=== PATIENT | female | born 1950 | race Caucasian/White ===

== ENCOUNTER → 2017-10-24 14:57 | Outpatient (REF) | payer MEDICARE, SELFPAY ==
[2017-10-24 19:38] LABS: HCT 37.3 % (36.0-46.0); HGB 12.5 g/dL (12.0-15.5); Mean Corp. HGB Concentration 33.5 g/dL (32.0-36.0); Mean Corpuscular Hemoglobin 30.3 pg (27.0-33.0); Mean Corpuscular Volume 90.5 fL (80-95); Mean Platelet Volume 8.7 fL (8.0-11.0); Platelet Count 377 x1000/uL (130-400); RBC 4.12 m/cumm (4.00-5.20); RBC Distribution Width 13.2 % (11.7-14.6); White Blood Cell Count 7.91 k/cumm (4.4-10.8)
[2017-10-24 19:56] LABS: Anion Gap 7.2 mmol/L (3-11); BUN 11 mg/dL (7-18); CO2 29.8 mmol/L (21.0-32.0); CREATININE 1.39 mg/dL (0.55-1.02); Calcium 8.3 mg/dL (8.5-10.1); Chloride 103 mmol/L (98-107); Estimated GFR 37.71 (mL/min/1.73m2); Glucose 75 mg/dL (70-100); Potassium 4.2 mmol/L (3.5-5.1); Sodium 140 mmol/L (136-145); TSH (W/Ref FT4) 2.24 uIU/mL (0.358-3.74)
== END ==
LOC: NCHCN 14:57
PROVIDERS: PCP Family Medicine; Visit Provider Family Medicine
DX: R53.83 Other fatigue (principal)
CPT/HCPCS: 80048; 85027; 84443

== ENCOUNTER 2017-11-29 09:09 | Outpatient (CLI) | payer MEDICARE, SELFPAY ==
[2017-11-29 10:37] LABS: Anion Gap 9.3 mmol/L (3-11); BUN 10 mg/dL (7-18); CO2 29.7 mmol/L (21.0-32.0); CREATININE 0.76 mg/dL (0.55-1.02); Chloride 103 mmol/L (98-107); Glucose 83 mg/dL (70-100); Potassium 4.5 mmol/L (3.5-5.1); Sodium 142 mmol/L (136-145)
[2017-11-30 10:34] LABS: Parathyroid Hormone,Intact 49 pg/ml (19-88)
== END 2017-11-29 09:29 ==
PROVIDERS: PCP Family Medicine; Visit Provider Family Medicine
DX: R53.83 Other fatigue (principal); E83.51 Hypocalcemia
CPT/HCPCS: 36415; 80048; 83970

== ENCOUNTER → 2018-08-01 09:52 | Outpatient (BNVA) | payer MEDICARE, SELFPAY | PROVIDERS: PCP Family Medicine; Referring Provider Family Medicine; Visit Provider Physical Therapy Assistant | DX: Z12.11 Encounter for screening for malignant neoplasm of colon (principal); J44.9 Chronic obstructive pulmonary disease, unspecified; Z99.81 Dependence on supplemental oxygen ==

== ENCOUNTER 2018-08-16 02:46 | Outpatient (CLI) | payer MEDICARE, SELFPAY | END 2018-08-16 03:06 | PROVIDERS: PCP Family Medicine; Visit Provider Surgery | DX: I20.9 Angina pectoris, unspecified (principal); Z01.810 Encounter for preprocedural cardiovascular examination | CPT/HCPCS: 93005; 93010 ==

== ENCOUNTER 2018-08-16 13:03 | Outpatient (CLI) | payer MEDICARE, SELFPAY | END 2018-08-16 13:23 | PROVIDERS: PCP Family Medicine; Visit Provider Surgery | DX: Z01.818 Encounter for other preprocedural examination (principal) ==

== ENCOUNTER 2018-08-23 08:00 | Day surgery (SDC) | payer MEDICARE, SELFPAY ==
[2018-08-23 08:44] VITALS: BP 106/63; PULSE 68; RESP 16; TEMP 36.5; O2SAT 94
[2018-08-23] MEDS: Lactated Ringers 1,000 ML 80 ML IV (09:00)
--- NOTE | 2018-08-23 11:33 | BOWEL_PTH ---
PATIENT: Tram Harris LOC: [facility] U#:[id number] AGE/SX: 68/F ROOM: RE08/23/[address]: Comfort Abad : 1950 BED: DIS: 08/23/2018 SPEC #: [id number] RECD: 08/23/18 13:12 STATUS: RACHEL RE #: [id number] JANETTE: 08/23/18 11:[address]: Comfort Abad DEPT: Surgical Specimen RECD BY: Mesha Carbajal ENTERED: 08/23/18 13:15 SP TYPE: Bowel OTHR DR: Sanjuana Haines Tissues: 1 - BIOPSY BOWEL 2 - BIOPSY BOWEL 3 - BIOPSY BOWEL 4 - BIOPSY BOWEL Procedures: GROSS AND MICRO LEVEL 4 Comments: [id number]
--- NOTE | 2018-08-23 12:05 | W.PM.DSUDISC ---
Discharge Plan Disposition Patient Disposition: HOME Condition: Good Discharge Details Reason For Visit: colonscopy w/ mult polyps removed Attending Provider: Comfort Abad Primary Care Provider: Sanjuana Haines Home Meds and New Rx's Prescriptions: Continued clonazepam 1 MG tablet 1 mg PO BID RF: 0 nitroglycerin [Nitrostat] 0.4 MG tablet, sublingual 0.4 mg Sublingual PRN PRNRF: 0 omeprazole 20 MG capsule,delayed release(DR/EC) 20 mg PO DAILY@0730 RF: 0 atorvastatin [Lipitor] 20 MG tablet 20 mg PO QPM RF: 0 escitalopram oxalate [Lexapro] 20 MG tablet 40 mg PO DAILY RF: 0 albuterol sulfate [ProAir HFA] 200 PUFF HFA aerosol inhaler 2 puff Inhalation QID PRN PRNRF: 0 metoprolol tartrate 25 MG tablet 0.5 mg PO BID RF: 0 Tudorza Pressair 400 MCG aerosol powdr breath activated 1 puff Inhalation DAILY RF: 0 oxybutynin chloride 5 MG tablet 1 tab PO BID RF: 0 isosorbide mononitrate 30 MG tablet extended release 24 hr 30 mg PO DAILY Qty: 30 RF: 0 Discontinued polyethylene glycol 3350 17 gram/dose powder 238 g PO ONCE Qty: 238 RF: 0 bisacodyl [Dulcolax (bisacodyl)] 5 mg tablet,delayed release (DR/EC) 5 mg PO ONCE Qty: 4 RF: 0 Discharge Instructions Instructions: High Fiber Diet (GEN) Additional Instructions: Findings:mult polyps Follow up: repeat scope in 1-3 yrs time will send a letter w/ reults in 2-3 wks and when to repeat scope NO asa/nsaids for x2 wks Please call if you develop: fevers >101.5 Nausea or Vomiting Abdominal pain that is not transient DAY SURGERY UNIT POST COLONOSCOPY INSTRUCTIONS 1. Because there will be medication in your system for the next 24 hours, you may feel a little sleepy. Your coordination will be affected. Therefore: a. Do not drive or operate dangerous equipment for 24 hours. b. Do not drink alcohol beverages for 24 hours (not even beer). c. Plan to go home and rest for the day. 2. Generally there are no restrictions on your activity after a day or so has gone by, but you may feel a bit fatigued for a few days. 3 After you arrive home you may have a light meal and return to a normal diet as you can tolerate it without feeling sick to your stomach. 4. After surgery, you may feel pain or discomfort. This should be only transient, but if it persists please contact your doctor. 5. If there are any questions regarding the findings of your procedure, please feel free to contact your doctor. 6. If you are unable to contact your doctor with a problem, contact the hospital at [phone]. 7. Continue all your regular medications unless directed otherwise. I understand the above instructions and have no questions. Signature of Patient or Responsible Adult Escort Date/Time Name of Responsible Adult Escort Signature of Nurse Date/Time Activity:: no heavy lifting or strenuous acitvity x 24 hrs Diet:: small lt meals today Discharge Orders Discharge Orders: Discharge Order (Routine); Ordered 08/23/18 Ordered By: Comfort Abad DS: Diagnosis Discharge Diagnosis (1) Adenomatous polyps: Status: Acute
--- NOTE | 2018-08-23 12:08 | W.COLOREPORT ---
Date of service: 08/23/18 Time of Service: 12:09 Colonoscopy Report Date of procedure: 08/23/18 Pre-op diagnosis general: FIT + Post-op diagnosis procedure note: other (polyps x 7) Procedure: 2 were removed by hot snare 5 by cold biter Surgeon: Comfort Abad Anesthesia proc note operative: GETA Estimated blood loss (mL): 5 Pathology: other Complications: None Disposition: same day Prep: Miralax Procedure Start Time: 11:10 Procedure End Time: 11:58 Procedure Description: After informed consent was obtained the patient was taken to the procedure room and placed in a left decubitous position. Monitors were applied and a time out was done. The patients name, date of , procedure, allergies to medications and metal in their body was reviewed. The patient was then sedated. Once sedated and comfortable a rectal exam was done. External exam: Hemorrhoids Internal exam revealed a normal sphincter tone and no palpable masses. The scope was then introduced and retrofelexed. no internal hemorrhoids were identified. The scope was then advanced to the cecum without difficulty. The TI and appendiceal orifice were identified. The prep was poor-lesions <5mm may have been missed. Melanosis cololi noted. The scope was then slowly retracted over 40 minutes back into the rectum. Polyps were removed at: 80cm/ascending colonx1 w/ cold biter. 60cm/transverse colon x1 w/ cold biter. 50cm/transverse colon x1 hot snare. 30cm/descending x3- cold biter. adn X1 w/ hot snare. All specimens were retreived and no bleeding was noted. The scope was removed and the patient was woken up and taken back to Same day surgery in stable condition. The patient tolerated the procedure well and there were no immediate complications. Follow up: The patient should follow up in 1-3 years unless they develop changes in bowel habits or other new gastrointestinal complaints, and provided she is healthy enough for anesthesia.
[2018-08-23 12:52] VITALS: BP 124/78; PULSE 56; RESP 16; TEMP 35.2; O2SAT 96
== END 2018-08-23 13:32 | disposition home or self-care (01) ==
PROVIDERS: PCP Family Medicine; Visit Provider Surgery
PROC: 0DJD8ZZ Inspection of Lower Intestinal Tract, Via Natural or Artificial Opening Endoscopic (ICD-10-PCS; CPT 45378; principal; 2018-08-23 09:30)
DX: Z12.11 Encounter for screening for malignant neoplasm of colon (principal); D12.2 Benign neoplasm of ascending colon; D12.3 Benign neoplasm of transverse colon; D12.4 Benign neoplasm of descending colon; K63.5 Polyp of colon; K63.89 Other specified diseases of intestine; J44.9 Chronic obstructive pulmonary disease, unspecified; K21.9 Gastro-esophageal reflux disease without esophagitis
CPT/HCPCS: 45385; 45380; 88305; 99211

== ENCOUNTER 2018-10-03 12:53 | Outpatient (CLI) | payer MEDICARE, SELFPAY ==
--- NOTE | 2018-10-03 13:16 | DI.MAMMO_ITS ---
SYMPTOM/DIAGNOSIS: SCREENING, Z12.39, PREVENTIVE HEALTH CARE, Z00.00 MAMMOGRAMS: Mammograms were interpreted according to the usual protocol including computer analysis with CAD system, tomosynthesis and C view imaging. The breast tissue is of moderate radiodensity. When compared with prior images, again noted is the asymmetric density in the upper outer quadrant of the left breast. There are no suspicious calcifications. SUMMARY: No evidence of malignancy. Category 1. Yearly screening mammography is recommended. Breast density, Category B. MQSA ASSESSMENT OF FINDINGS: Negative. Category 1. Patient will receive a letter notifying them of these results. BI-RADS category B. There are scattered areas of fibroglandular density.
== END 2018-10-03 13:13 ==
PROVIDERS: PCP Family Medicine; Visit Provider Family Medicine
DX: Z12.31 Encounter for screening mammogram for malignant neoplasm of breast (principal)
CPT/HCPCS: 77063; 77067

== ENCOUNTER 2019-04-05 16:45 | Emergency (ER) | payer MEDICARE, SELFPAY ==
[2019-04-05] VITALS (22 sets, daily range): BP systolic 104–131; BP diastolic 71–97; PULSE 0–104; RESP 11–24; TEMP 36.4–36.5; O2SAT 90–97
--- NOTE | 2019-04-05 17:05 | ED.GENADUL_ITS ---
Discharge Plan Disposition Patient Disposition: HOME Condition: Improving Discharge Details Chief Complaint: Chest Pain Clinical Impression: Atypical chest pain Primary Care Provider: Meme Rosa V ED Provider: Pk Balderas Home Meds and New Rx's Prescriptions: Continued clonazepam 1 MG tablet 1 mg PO BID RF: 0 nitroglycerin [Nitrostat] 0.4 MG tablet, sublingual 0.4 mg Sublingual PRN PRNRF: 0 omeprazole 20 MG capsule,delayed release(DR/EC) 20 mg PO DAILY@0730 RF: 0 atorvastatin [Lipitor] 20 MG tablet 20 mg PO QPM RF: 0 escitalopram oxalate [Lexapro] 20 MG tablet 40 mg PO DAILY RF: 0 albuterol sulfate [ProAir HFA] 200 PUFF HFA aerosol inhaler 2 puff Inhalation QID PRN PRNRF: 0 metoprolol tartrate 25 MG tablet 0.5 mg PO BID RF: 0 oxybutynin chloride 5 MG tablet 1 tab PO BID RF: 0 isosorbide mononitrate 30 MG tablet extended release 24 hr 30 mg PO DAILY Qty: 30 RF: 0 No Action calcium citrate [Calcitrate] 200 mg (950 mg) Tablet 200 mg PO BID RF: 0 cholecalciferol (vitamin D3) [Vitamin D3] 2,000 unit Tablet 2,000 unit PO DAILY RF: 0 Incruse Ellipta 62.5 mcg/actuation Blister With Device 1 inh INHALATION DAILY RF: 0 Medical Decision Making 69-year-old female presents from home stating that this morning she developed dull left-sided chest pain at rest that lasted minutes at a time dissipated on its own. It came on and off throughout the day. This afternoon she felt should be evaluated and she and her got in the car to come to the hospital and the chest pain dissipated. It was not associated with shortness of breath and she has not been ill in any way. 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 Patient arrives in no distress with normal vital signs. She states she is oxygen dependent at home but her room air oxygenation is 94 to 95%. Chest x-ray reveals linear atelectasis versus mild infiltrate at the left base. Labs: White blood cell count 7, hematocrit 38, platelets 434. Chemistries notable for magnesium of 1.6 which was supplemented in the emergency department. Troponin was negative. Patient remained asymptomatic throughout stay in the ER. On repeat evaluation she continues to deny any cough, congestion, or fever. Discussed with her the finding on chest x-ray. She is stable and improved. She is appropriate for discharge home at this time. ECG Data Attestation: I personally reviewed and interpreted this ECG (s) as follows: Interpretation: Normal sinus rhythm, rate of 64, QRS is narrow, nonspecific ST segment flattening nearly throughout. Not significantly changed versus comparison of August 16, 2018. [facility] General Mode of arrival: ambulatory . Date/Time Provider Initiated Documentation: 04/05/19 16:50 . Limitations to Documentation: no limitations . Information obtained by: patient and family . History of Present Illness 69 year old F presents to the emergency department with the chief complaint of Chest pain, now resolved, Quality is described as dull, and is localized to the chest and left. Patient reports no radiation. Patient started experiencing this hour(s) and it has been now resolved. No relieving factors improve symptom(s), No exacerbating factors reported . Patient notes denies cough, fever/chills, rash and shortness of breath. Patient did receive the following treatments prior to arrival, other (Took nitroglycerin at home earlier in the day) Related Data Home Medications Medication Instructions Recorded Confirmed clonazepam 1 mg PO BID 09/06/12 04/05/19 nitroglycerin [Nitrostat] 0.4 mg SUBLINGUAL PRN PRN 09/06/12 04/05/19 omeprazole 20 mg PO DAILY@0730 09/06/12 04/05/19 atorvastatin [Lipitor] 20 mg PO QPM 09/16/12 04/05/19 escitalopram oxalate [Lexapro] 40 mg PO DAILY 09/16/12 04/05/19 albuterol sulfate [ProAir HFA] 2 puff INHALATION QID PRN PRN 10/06/15 04/05/19 metoprolol tartrate 0.5 mg PO BID 10/06/15 04/05/19 oxybutynin chloride 1 tab PO BID 01/30/16 04/05/19 isosorbide mononitrate 30 mg PO DAILY #30 tabcr 03/29/16 04/05/19 calcium citrate [Calcitrate] 200 mg PO BID 04/05/19 04/05/19 cholecalciferol (vitamin D3) 2,000 unit PO DAILY 04/05/19 04/05/19 [Vitamin D3] umeclidinium [Incruse Ellipta] 1 inh INHALATION DAILY 04/05/19 04/05/19 Previous Rx's Medication Instructions Recorded isosorbide mononitrate 30 mg PO DAILY #30 tabcr 03/29/16 Allergies Allergy/AdvReac Type Severity Reaction Status Date / Time lamotrigine [From Lamictal] Allergy Intermediate Skin Rash Verified 04/05/19 16:54 trazodone AdvReac Severe Nightmares Verified 04/05/19 16:54 mirtazapine [From Remeron] AdvReac Intermediate nightmares Verified 04/05/19 16:54 codeine AdvReac Mild Nausea Verified 04/05/19 16:54 Sulfa (Sulfonamide AdvReac Mild Nausea Verified 04/05/19 16:54 Antibiotics) General Stated Complaint: Chest Pain ROSHNI: 3 Review of Systems Narrative: No fever, chills, cough. Denies fall or injury. States she now feels improved. 6 systems reviewed and otherwise negative [facility] Medical History Adenomatous polyps (Resolved) Tubular adenomax 2, tubulovillous adenoma x 2, 08/23/18, Dr Comfort Abad, repeat 2 years. Anxiety (Chronic) Chest pain (Acute) Depression, major, recurrent (Chronic) Early menopause (Resolved) Fatigue (Acute) Former smoker (Resolved) GERD (gastroesophageal reflux disease) (Chronic) Hyperlipidemia (Chronic) Osteoporosis (Chronic) Prinzmetal angina (Acute) PTSD (post-traumatic stress disorder) (Chronic) Stage 2 moderate COPD by GOLD classification (Chronic) Urge incontinence (Acute) Surgical History (Updated 08/23/18 @ 08:46 by Tonia Webster) History of appendectomy (Chronic) History of cardiac catheterization (Chronic) History of cholecystectomy (Chronic) History of colonoscopy (Chronic) 08/23/18: Pt reports no hx of previous colonoscopy Family History (Updated 08/23/18 @ 08:47 by Tonia Wesbter) Other Cancer Heart disease Social History Smoking/Tobacco Use Status: Former Tobacco Use Alcohol Intake: never Drug use: Never Substance use type: does not use Do you feel safe at home: Yes Do you feel safe in your relationship?: Yes Exam Narrative Exam Narrative: GEN: awake, alert, oriented 3. Pleasant, well groomed, interactive. HEAD: Normocephalic, atraumatic ENT: Mucous membranes moist, oropharynx unremarkable, External ear exam unremarkable EYES: PERRL, EOMI NECK: Full ROM, no KARIME, no menigismus CHEST/RESP: Nontender, clear to auscultation bilateral, no wheeze/rhonchi/rales CARDIOVASCULAR: RRR, no murmur, rub jacque. 2+ Rad pulse bilateral ABDOMEN: Soft, nontender, no mass. +Bowel sounds EXT: Full ROM, no edema, no rash Neuro: Grossly normal neurologic exam, conversant, interactive. Psych: Speech fluent, thoughts congruent, affect normal Course Vital Signs Vital signs: Vital Signs Temperature 36.5 C 04/05/19 16:49 Pulse 68 04/05/19 16:49 Respiratory Rate 20 04/05/19 16:49 Blood Pressure 124/72 04/05/19 16:49 Pulse Oximetry 95 04/05/19 16:49 Temperature 36.5 C 04/05/19 16:49 Temperature Source Temporal Artery Scan 04/05/19 16:49 Pulse 68 04/05/19 16:49 Respiratory Rate 20 04/05/19 16:49 Blood Pressure 124/72 04/05/19 16:49 Blood Pressure Position Supine 04/05/19 16:49 Pulse Oximetry 95 04/05/19 16:49 Oxygen Delivery Method Room Air 04/05/19 16:49 Oxygen Flow Rate 0 04/05/19 16:49 Pain Level 0 04/05/19 16:49
[2019-04-05 17:15] LABS: Abs Immature Grans 0.01 k/cumm (0.0-0.09); Absolute Basophil Count 0.05 k/cumm (0.0-0.2); Absolute Lymphocyte Count 2.89 k/cumm (1.2-3.4); Absolute Monocyte Count 0.73 k/cumm (0.11-0.7); Absolute Neutrophil Count 3.87 k/cumm (1.2-6.7); Basophils % 0.6; Eosinophils % 2.6; HCT 38.7 % (36.0-46.0); Immature Grans % 0.1 %; Lymphocytes % 37.3; Mean Corp. HGB Concentration 33.6 g/dL (32.0-36.0); Mean Corpuscular Hemoglobin 30.2 pg (27.0-33.0); Mean Platelet Volume 8.2 fL (8.0-11.0); Monocytes % 9.4; Platelet Count 434 x1000/uL (130-400); White Blood Cell Count 7.75 k/cumm (4.4-10.8)
[2019-04-05 17:30] LABS: ALT 18 U/L (14-59); AST 15 U/L (15-37); Albumin 3.2 g/dL (3.4-5.0); Alkaline Phosphatase 85 U/L (46-116); Anion Gap 6.4 mmol/L (3-11); BUN 13 mg/dL (7-18); Bilirubin, Total 0.2 mg/dL (0.2-1.0); CO2 32.6 mmol/L (21.0-32.0); CREATININE 0.79 mg/dL (0.55-1.02); Calcium 8.7 mg/dL (8.5-10.1); Chloride 103 mmol/L (98-107); Glucose 102 mg/dL (74-106); Magnesium 1.6 mg/dL (1.8-2.4); Potassium 3.7 mmol/L (3.5-5.1); Sodium 142 mmol/L (136-145); Total Protein 6.7 g/dL (6.4-8.2)
[2019-04-05 17:31] LABS: Troponin I < 0.05 ng/Ml (<0.06)
--- NOTE | 2019-04-05 17:34 | DI.VRAD_ITS ---
PROCEDURE INFORMATION: Exam: XR Chest, 2 Views Exam date and time: 04/05/2019 5:24 PM Age: 69 years old Clinical indication: Other: Chest pain TECHNIQUE: Imaging protocol: XR of the chest Views: 2 views. COMPARISON: CR CHEST 2 VIEWS PA,LAT 03/29/2016 12:13 PM FINDINGS: Lungs: COPD. Linear atelectasis versus mild infiltrate at the left base. Pleural space: Unremarkable. No pleural effusion. No pneumothorax. Heart/Mediastinum: Unremarkable. No cardiomegaly. Vasculature: Atherosclerosis. Bones/joints: Unremarkable. IMPRESSION: COPD Linear atelectasis versus mild infiltrate at the left base Dictated and Authenticated by: Phoebe Chaney MD. Ordering:ANNMARIE Whittington MD
--- NOTE | 2019-04-05 17:36 | DI.RAD_ITS ---
EXAM: XR CHEST 2V PA LATERAL CLINICAL HISTORY: Left chest pain, improved TECHNIQUE: COMPARISON: CHEST 2 VIEWS PA,LAT from 03/29/2016 FINDINGS: The heart is not enlarged. There appear to be mild changes of COPD and pulmonary scarring. No defin ite acute consolidation. Question mild scarring versus atelectasis at the left lung base. IMPRESSION: No evidence of acute process.
[2019-04-05] MEDS: MAGNESIUM SULFATE 1 GM/100 ML BAG IVPB (17:37)
== END 2019-04-05 18:40 | disposition home or self-care (01) ==
LOC: ER 18:01
PROVIDERS: Emergency Provider Emergency Medicine; PCP Family Medicine
DX: R07.89 Other chest pain (principal); E83.42 Hypomagnesemia; I20.1 Angina pectoris with documented spasm; J44.9 Chronic obstructive pulmonary disease, unspecified; Z87.891 Personal history of nicotine dependence; Z99.81 Dependence on supplemental oxygen
CPT/HCPCS: 36415; 80053; 93005; 96365; 99285; 71046; 83735; 84484; 85025; 93010; 99284; J3475

== ENCOUNTER 2019-08-19 14:10 | Outpatient (REF) | payer MEDICARE, SELFPAY ==
[2019-08-20 03:18] LABS: COVID-19 RT-PCR UVMMC Result Negative (Negative)
== END 2019-08-19 14:30 ==
LOC: NCHCN 14:10
PROVIDERS: PCP Family Medicine; Visit Provider Nurse Practitioner Family
DX: Z11.59 Encounter for screening for other viral diseases (principal)
CPT/HCPCS: U0003

== ENCOUNTER 2019-08-26 18:37 | Outpatient (REF) | payer MEDICARE, SELFPAY ==
[2019-08-26 19:09] LABS: ALT 21 U/L (14-59); AST 23 U/L (15-37); Albumin 3.1 g/dL (3.4-5.0); Alkaline Phosphatase 97 U/L (46-116); Amylase 32 U/L (25-115); Anion Gap 6.9 mmol/L (3-11); BUN 9 mg/dL (7-18); Bilirubin, Total 0.1 mg/dL (0.2-1.0); CO2 31.1 mmol/L (21.0-32.0); CREATININE 0.98 mg/dL (0.55-1.02); Calcium 8.7 mg/dL (8.5-10.1); Chloride 102 mmol/L (98-107); Estimated GFR 56.11 (mL/min/1.73m2); Glucose 85 mg/dL (74-106); Lipase 49 U/L (73-393); Potassium 4.9 mmol/L (3.5-5.1); Sodium 140 mmol/L (136-145); Total Protein 6.6 g/dL (6.4-8.2)
[2019-08-26 19:13] LABS: Abs Immature Grans 0.02 k/cumm (0.0-0.09); Absolute Basophil Count 0.04 k/cumm (0.0-0.2); Absolute Eosinophil Count 0.29 k/cumm (0.0-0.7); Absolute Lymphocyte Count 2.16 k/cumm (1.2-3.4); Absolute Monocyte Count 0.56 k/cumm (0.11-0.7); Absolute Neutrophil Count 5.45 k/cumm (1.2-6.7); Basophils % 0.5; Eosinophils % 3.4; HCT 35.4 % (36.0-46.0); HGB 11.6 g/dL (12.0-15.5); Immature Grans % 0.2 %; Lymphocytes % 25.4; Mean Corp. HGB Concentration 32.8 g/dL (32.0-36.0); Mean Corpuscular Hemoglobin 30.6 pg (27.0-33.0); Mean Corpuscular Volume 93.4 fL (80-95); Mean Platelet Volume 8.3 fL (8.0-11.0); Monocytes % 6.6; Neutrophils % 63.9; RBC 3.79 m/cumm (4.00-5.20); RBC Distribution Width 12.8 % (11.7-14.6); White Blood Cell Count 8.52 k/cumm (4.4-10.8)
[2019-08-26 20:17] LABS: Diff Comment PLT Morph Reviewed
[2019-08-26 22:45] LABS: Platelet Count 797 x1000/uL (130-400)
[2019-08-27 16:49] LABS: Iron 60 ug/dL (50-170); Total Iron Binding Capacity 284 ug/dL (250-450); Transferrin Sat 21 % (15-50)
[2019-08-27 17:02] LABS: Ferritin 64 ng/mL (8-252)
== END 2019-08-26 18:57 ==
LOC: NCHCN 18:37
PROVIDERS: PCP Physician Assistant Medical; Visit Provider Physician Assistant Medical
DX: D64.9 Anemia, unspecified (principal); R11.10 Vomiting, unspecified; D47.3 Essential (hemorrhagic) thrombocythemia
CPT/HCPCS: 80053; 83690; 82150; 82728; 83540; 83550; 85025

== ENCOUNTER 2019-09-03 02:34 | Outpatient (CLI) | payer MEDICARE, SELFPAY ==
--- NOTE | 2019-09-03 | DI.CT_ITS ---
EXAM: CT ABDOMEN PELVIS W CLINICAL HISTORY: VOMITING, R11.10,ANEMIA,D64.9,THROMBOCYTOSIS,D47.3. TECHNIQUE: Imaging Protocol: Axial computed tomography images with coronal and sagittal reformatted images were created and reviewed CONTRAST MATERIAL: Intravenous: Omnipaque 350 Contrast volume:100 ml Oral: yes COMPARISON: CT ABD PELVIS WITH CONTRAST from 12/04/2011 FINDINGS: ABDOMEN: Lung Bases: Mild emphysematous changes Liver: Normal density. No measurable mass. Gallbladder and biliary tract: No radiodense calculus or dilation. Pancreas: Somewhat atrophic. Normal density, no abnormal calcifications or inflammatory process. Spleen: Normal. Kidneys: Normal size, contour and axis. No radiodense stones or obstructive uropathy. No masses seen. Adrenal glands: No masses seen. Abdominal Aorta: Abdominal portion non-dilated. Mild calcification. PELVIS: Bladder: Symmetric distention, no gross wall thickening. Bowel: Increased quantity of stool. No obstruction or bowel wall thickening. Peritoneal cavity: No ascites, collection or mesenteric inflammatory response. Bones: Stable mild L1 compression fracture. Degenerative disc changes at L5-S1.. Reproductive organs: Within normal limits. Lymph nodes: Unremarkable. Impression: Increased quantity of stool. No acute abnormality.. RADIATION DOSE DELIVERED: 780mGy.cm Total DLP DATA REPOSITORY: All CT scans at this facility are submitted to the National Radiology Data Registry (NRDR) Dose Index Registry (DIR) with the [employer] (A[employer]). RADIATION OPTIMIZATION: All CT scans at this facility use at least one of these dose optimization te chniques: automated exposure control; mA and/or kV adjustment per patient size (includes targeted exa ms where dose is matched to clinical indication); or iterative reconstruction.
[2019-09-03] MEDS: Breeza Beverage 473 ML BTL PO ×2 (07:51→07:52)
[2019-09-03] MEDS: Omnipaque 350 MG/ML 50 ML BTL PO (07:51)
[2019-09-03] MEDS: Omnipaque 350 MG/ML 100 ML BTL IJ (08:53)
[2019-09-03] MEDS: Normal Saline Flush 10 ML SYR IVP (08:54)
[2019-09-03] MEDS: Normal Saline - Diluent 50 ML VIAL IV (08:54)
== END 2019-09-03 02:54 ==
PROVIDERS: PCP Physician Assistant Medical; Visit Provider Physician Assistant Medical
DX: R11.10 Vomiting, unspecified (principal); D64.9 Anemia, unspecified; D47.3 Essential (hemorrhagic) thrombocythemia; K59.00 Constipation, unspecified; J43.8 Other emphysema
CPT/HCPCS: 74177; J3490; Q9967

== ENCOUNTER 2019-09-04 05:24 | Outpatient (REF) | payer MEDICARE, SELFPAY ==
[2019-09-04 14:14] LABS: Abs Immature Grans 0.03 k/cumm (0.0-0.09); Absolute Basophil Count 0.08 k/cumm (0.0-0.2); Absolute Eosinophil Count 0.24 k/cumm (0.0-0.7); Absolute Lymphocyte Count 2.61 k/cumm (1.2-3.4); Absolute Monocyte Count 0.63 k/cumm (0.11-0.7); Basophils % 0.8; Eosinophils % 2.5; HCT 35.6 % (36.0-46.0); HGB 11.7 g/dL (12.0-15.5); Immature Grans % 0.3 %; Lymphocytes % 26.7; Mean Corp. HGB Concentration 32.9 g/dL (32.0-36.0); Mean Corpuscular Hemoglobin 30.2 pg (27.0-33.0); Mean Platelet Volume 8.2 fL (8.0-11.0); Monocytes % 6.4; Neutrophils % 63.3; Platelet Count 473 x1000/uL (130-400); RBC 3.87 m/cumm (4.00-5.20); RBC Distribution Width 12.9 % (11.7-14.6); White Blood Cell Count 9.79 k/cumm (4.4-10.8)
== END 2019-09-04 05:44 ==
LOC: LBO 05:24
PROVIDERS: PCP Physician Assistant Medical; Visit Provider Physician Assistant Medical
DX: D47.3 Essential (hemorrhagic) thrombocythemia (principal)
CPT/HCPCS: 36415; 85025

== ENCOUNTER 2019-09-26 22:28 | Emergency (ER) | payer MEDICARE, SELFPAY ==
[2019-09-26 22:37] VITALS: BP 141/70; PULSE 81; RESP 16; TEMP 37; O2SAT 95
[2019-09-26 22:40] VITALS: RESP 16
--- NOTE | 2019-09-26 22:45 | RT.EKG_ITS ---
APPROVED REPORT Exam: Resting ECG Patient Location: E HR:66 bpm ECG Measurements Heart Rate 66 AXIS ID 158 P 63 QRSd 86 QRS -55 QT 403 T 46 QTc 423 <Conclusion> Sinus rhythm...normal P axis, V-rate 60- 99 Left anterior fascicular block...axis(240,-40), init forces inf Low voltage, precordial leads...precordial leads <1.0mV Left [place] I have reviewed and interpreted ECG and agree with software generated interpretation.
--- NOTE | 2019-09-26 23:02 | ED.GENADUL_ITS ---
Discharge Plan Disposition Patient Disposition: HOME Condition: Good Discharge Details Chief Complaint: SOB Clinical Impression: Nausea and vomiting, Rectal bleeding Primary Care Provider: Shazia Whipple ED Provider: Gilberto Arcos Roselle Meds and New Rx's Prescriptions: New ondansetron 4 mg tablet,disintegrating 4 mg PO Q8H PRNQty: 10 RF: 0 Continued clonazepam 1 MG tablet 1 mg PO BID RF: 0 nitroglycerin [Nitrostat] 0.4 MG tablet, sublingual 0.4 mg Sublingual PRN PRNRF: 0 omeprazole 20 MG capsule,delayed release(DR/EC) 20 mg PO DAILY@0730 RF: 0 atorvastatin [Lipitor] 20 MG tablet 20 mg PO QPM RF: 0 escitalopram oxalate [Lexapro] 20 MG tablet 40 mg PO DAILY RF: 0 albuterol sulfate [ProAir HFA] 200 PUFF HFA aerosol inhaler 2 puff Inhalation QID PRN PRNRF: 0 metoprolol tartrate 25 MG tablet 25 mg PO BID RF: 0 oxybutynin chloride 5 MG tablet 1 tab PO BID RF: 0 isosorbide mononitrate 30 MG tablet extended release 24 hr 30 mg PO DAILY Qty: 30 RF: 0 calcium citrate [Calcitrate] 200 mg (950 mg) Tablet 200 mg PO BID RF: 0 cholecalciferol (vitamin D3) [Vitamin D3] 2,000 unit Tablet 2,000 unit PO DAILY RF: 0 Incruse Ellipta 62.5 mcg/actuation Blister With Device 1 inh INHALATION DAILY RF: 0 Discharge Instructions Instructions: Rectal Bleeding (ED), Acute Nausea and Vomiting (ED) Additional Instructions: Your laboratory studies are all stable tonight compared to last month. Suspect your rectal bleeding is related to hemorrhoids and it would be important to increase fluid and fiber intake as best as possible to prevent constipation. You may use the ondansetron for nausea and vomiting so that you are able to take fluids and bland diet. Contact primary care for follow-up next week. Return to ED for persistent vomiting, abdominal pain, bloody diarrhea, high fever, other concerns or problems. Referrals: Shazia Whipple PA [Primary Care Provider] - Medical Decision Making Patient presenting with complaints of nausea, vomiting, rectal bleeding. For me she denies any change in her baseline shortness of breath. She denies cough or chest pain. She denies abdominal pain. There is no bleeding currently and stool is brown and Hemoccult negative. In reviewing her records both here and through the portal to her primary care she appears to have been having issues with vomiting and abdominal discomfort for the last month. She had a CT scan done here on September 02 which showed nothing acute. Has a benign abdomen here. She is afebrile and looks well. Given Zofran ODT and abdominal labs sent. Laboratory studies are unremarkable. Anemia is baseline and unchanged. Normal white count. Chemistries unremarkable other than BUN being a little elevated. Suspect this may be related to some dehydration. Do not suspect upper GI bleed causing this. Lipase normal. Patient with some saturations in the high 80s. Patient denies being short of breath. Finally at end of her visit she informed me that she is on home oxygen chronically. She has not been on oxygen here. At this point think she is safe for discharge home to follow-up with primary care. It would appear that she has had GI complaints intermittently for the last month. She appears to be baseline in terms of her breathing. I will send her home with prescription for Zofran ODT to use as needed. Return to ED for persistent vomiting, bloody diarrhea, abdominal pain, spiking fevers, increasing shortness of breath, other concerns. Medical Records Medical records reviewed: Yes I reviewed the patient's medical records. Lab Data Lab results reviewed: Yes I reviewed the patient's lab results. ECG Data Interpretation: Please see EKG report. HPI General Mode of arrival: ambulatory . Date/Time Provider Initiated Documentation: 09/26/19 22:43 . Limitations to Documentation: no limitations . Information obtained by: patient, RN notes reviewed and old records reviewed . HPI Narrative: Patient presents to ED with complaint of nausea and vomiting as well as rectal bleeding. She denies having abdominal pain. She reports vomiting 4-5 times in the last 2 days. She reports blood after bowel movements when she is wiping. Sometimes thinks she sees blood within the stool. Denies diarrhea. She told nursing she was here for shortness of breath. When specifically questioned about this, she states that her shortness of breath is no different than previou s. She denies cough or chest pain. She states that her told her she had a fever yesterday but she is unable to relate to me how high her fever was. She denies any URI type symptoms. She continues to make urine. She denies urinary symptoms. Related Data Home Medications Medication Instructions Recorded Confirmed clonazepam 1 mg PO BID 09/06/12 04/05/19 nitroglycerin [Nitrostat] 0.4 mg SUBLINGUAL PRN PRN 09/06/12 04/05/19 omeprazole 20 mg PO DAILY@0730 09/06/12 04/05/19 atorvastatin [Lipitor] 20 mg PO QPM 09/16/12 04/05/19 escitalopram oxalate [Lexapro] 40 mg PO DAILY 09/16/12 04/05/19 albuterol sulfate [ProAir HFA] 2 puff INHALATION QID PRN PRN 10/06/15 04/05/19 metoprolol tartrate 25 mg PO BID 10/06/15 04/05/19 oxybutynin chloride 1 tab PO BID 01/30/16 04/05/19 isosorbide mononitrate 30 mg PO DAILY #30 tabcr 03/29/16 04/05/19 Incruse Ellipta 1 inh INHALATION DAILY 04/05/19 04/05/19 calcium citrate [Calcitrate] 200 mg PO BID 04/05/19 04/05/19 cholecalciferol (vitamin D3) 2,000 unit PO DAILY 04/05/19 04/05/19 [Vitamin D3] ondansetron 4 mg PO Q8H PRN #10 tab 09/27/19 Previous Rx's Medication Instructions Recorded isosorbide mononitrate 30 mg PO DAILY #30 tabcr 03/29/16 ondansetron 4 mg PO Q8H PRN #10 tab 09/27/19 Allergies Allergy/AdvReac Type Severity Reaction Status Date / Time lamotrigine [From Lamictal] Allergy Intermediate Skin Rash Verified 09/26/19 22:40 trazodone AdvReac Severe Nightmares Verified 09/26/19 22:40 mirtazapine [From Remeron] AdvReac Intermediate nightmares Verified 09/26/19 22:40 codeine AdvReac Mild Nausea Verified 09/26/19 22:40 Sulfa (Sulfonamide AdvReac Mild Nausea Verified 09/26/19 22:40 Antibiotics) General Stated Complaint: SOB ROSHNI: 3 Review of Systems Narrative: As documented in HPI otherwise negative as below. Const: no chills, weakness Resp: no cough, pleuritic pain CV: no CP, diaphoresis, edema, syncope GI: no abdominal pain Neuro: no headache, numbness, focal weakness, confusion PFSH Medical History Adenomatous polyps (Resolved) Tubular adenomax 2, tubulovillous adenoma x 2, 08/23/18, Dr Comfort Abad, repeat 2 years. Anxiety (Chronic) Chest pain (Acute) Depression, major, recurrent (Chronic) Early menopause (Resolved) Fatigue (Acute) Former smoker (Resolved) GERD (gastroesophageal reflux disease) (Chronic) Hyperlipidemia (Chronic) Osteoporosis (Chronic) Prinzmetal angina (Acute) PTSD (post-traumatic stress disorder) (Chronic) Stage 2 moderate COPD by GOLD classification (Chronic) Urge incontinence (Acute) Surgical History History of appendectomy (Chronic) History of cardiac catheterization (Chronic) History of cholecystectomy (Chronic) History of colonoscopy (Chronic) 08/23/18: Pt reports no hx of previous colonoscopy Family History (Updated 08/23/18 @ 08:47 by Tonia Webster) Other Cancer Heart disease Social History Smoking/Tobacco Use Status: Former Tobacco Use Alcohol Intake: never Drug use: Never Substance use type: does not use Do you feel safe at home: Yes Do you feel safe in your relationship?: Yes Exam Narrative Exam Narrative: Vitals: Afebrile. Mildly hypertensive. Normal vitals and room air pulse ox. Const: Obese female in NAD. HEENT: NC/AT. Normal facial exam. Eyes: Normal conjunctiva and sclera. Neck: Supple. Trachea midline. Lungs: Normal respiratory effort. Lungs are clear. Cor: RRR without murmur/gallop. Good radial pulses. GI: Soft. NT/ND. No guarding or rebound. Rectal: Performed with nurse present. Hemorrhoids present. No bleeding. Brown stool with Hemoccult negative Neuro: A+O x 3. Normal speech, mentation. Cranial nerves II - XII grossly intact. No gross motor or sensory deficit. Ext: No C/C/E. Skin: Warm and dry without rash. Course Vital Signs Vital signs: Vital Signs Temperature 98.6 F 09/26/19 22:37 Pulse 81 09/26/19 22:37 Respiratory Rate 16 09/26/19 22:37 Blood Pressure 141/70 H 09/26/19 22:37 Pulse Oximetry 95 09/26/19 22:37 Temperature 98.6 F 09/26/19 22:37 Temperature Source Skin 09/26/19 22:37 Pulse 81 09/26/19 22:37 Respiratory Rate 16 09/26/19 22:40 Respiratory Effort Non-Labored 09/26/19 22:40 Respiratory Depth Normal 09/26/19 22:40 Respiratory Pattern Normal 09/26/19 22:40 Blood Pressure 141/70 H 09/26/19 22:37 Blood Pressure Position Sitting 09/26/19 22:37 Pulse Oximetry 95 09/26/19 22:37 Oxygen Delivery Method Room Air 09/26/19 22:37 Oxygen Flow Rate 0 09/26/19 22:37 Pain Level 0 09/26/19 22:37
[2019-09-26 23:03] VITALS: PULSE 73; RESP 20
[2019-09-26 23:10] VITALS: PULSE 67; RESP 20
[2019-09-26] MEDS: Ondansetron O.D.T. 4 MG TABEF PO (23:19)
[2019-09-26 23:31] LABS: Abs Immature Grans 0.01 k/cumm (0.0-0.09); Absolute Basophil Count 0.04 k/cumm (0.0-0.2); Absolute Eosinophil Count 0.24 k/cumm (0.0-0.7); Absolute Lymphocyte Count 2.84 k/cumm (1.2-3.4); Absolute Monocyte Count 0.65 k/cumm (0.11-0.7); Basophils % 0.5; Eosinophils % 2.8; HCT 34.9 % (36.0-46.0); HGB 11.8 g/dL (12.0-15.5); Immature Grans % 0.1 %; Lymphocytes % 33.5; Mean Corp. HGB Concentration 33.8 g/dL (32.0-36.0); Mean Corpuscular Hemoglobin 30.7 pg (27.0-33.0); Mean Corpuscular Volume 90.9 fL (80-95); Mean Platelet Volume 8.3 fL (8.0-11.0); Monocytes % 7.7; Neutrophils % 55.4; Platelet Count 373 x1000/uL (130-400); RBC 3.84 m/cumm (4.00-5.20); RBC Distribution Width 13.5 % (11.7-14.6); White Blood Cell Count 8.48 k/cumm (4.4-10.8)
[2019-09-26 23:43] LABS: ALT 17 U/L (14-59); AST 17 U/L (15-37); Albumin 3.4 g/dL (3.4-5.0); Alkaline Phosphatase 93 U/L (46-116); Anion Gap 7.1 mmol/L (3-11); BUN 24 mg/dL (7-18); Bilirubin, Total 0.2 mg/dL (0.2-1.0); CO2 26.9 mmol/L (21.0-32.0); CREATININE 0.92 mg/dL (0.55-1.02); Calcium 8.7 mg/dL (8.5-10.1); Chloride 103 mmol/L (98-107); Glucose 106 mg/dL (74-106); Potassium 3.7 mmol/L (3.5-5.1); Sodium 137 mmol/L (136-145); Total Protein 6.8 g/dL (6.4-8.2)
[2019-09-26 23:47] LABS: Lipase 66 U/L (73-393)
== END 2019-09-27 00:35 | disposition home or self-care (01) ==
PROVIDERS: Emergency Provider Emergency Medicine; PCP Physician Assistant Medical
DX: R11.2 Nausea with vomiting, unspecified (principal); K62.5 Hemorrhage of anus and rectum; R06.02 Shortness of breath; J44.9 Chronic obstructive pulmonary disease, unspecified; Z87.891 Personal history of nicotine dependence; Z99.81 Dependence on supplemental oxygen
CPT/HCPCS: 36415; 80053; 83690; 93005; 99284; 85025; 93010

== ENCOUNTER 2020-02-16 11:17 | Outpatient (REF) | payer MEDICARE, SELFPAY ==
[2020-02-16 19:30] LABS: Abs Immature Grans 0.05 10^3/uL (0.0-0.06); Absolute Basophil Count 0.07 10^3/uL (0.0-0.2); Absolute Lymphocyte Count 2.47 10^3/uL (1.2-3.4); Absolute Monocyte Count 0.48 10^3/uL (0.1-0.8); Absolute Neutrophil Count 4.54 10^3/uL (1.2-6.7); Basophils % 0.9; Eosinophils % 2.6; HCT 39.1 % (36.0-46.0); HGB 12.8 g/dL (11.2-15.7); Immature Grans % 0.6; Lymphocytes % 31.6; MCH 29.4 pg (27.0-33.0); MCHC 32.7 % (32.0-36.0); MCV 89.7 fL (80-95); MPV 9.4 fL (8.0-11.0); Monocytes % 6.1; Neutrophils % 58.2; Nucleated RBC 0 %; Platelet Count 433 10^3/uL (130-400); RBC 4.36 10^6/uL (3.93-5.22); RDW 12.6 % (11.7-14.6); RDW-SD 41.7 fL; WBC 7.81 10^3/uL (4.4-10.8)
[2020-02-16 19:43] LABS: ALT 16 U/L (14-59); AST 17 U/L (15-37); Albumin 3.6 g/dL (3.4-5.0); Alkaline Phosphatase 114 U/L (46-116); Amylase 26 U/L (25-115); Anion Gap 3.7 mmol/L (3-11); BUN 23 mg/dL (7-18); Bilirubin, Total 0.3 mg/dL (0.2-1.0); CO2 31.3 mmol/L (21.0-32.0); CREATININE 0.97 mg/dL (0.55-1.02); Calcium 8.9 mg/dL (8.5-10.1); Chloride 102 mmol/L (98-107); Estimated GFR 56.77 (mL/min/1.73m2); Glucose 98 mg/dL (74-106); Lipase 55 U/L (73-393); Potassium 4.5 mmol/L (3.5-5.1); Sodium 137 mmol/L (136-145); Total Protein 6.9 g/dL (6.4-8.2)
== END 2020-02-16 11:37 ==
LOC: NCHCN 11:17
PROVIDERS: PCP Physician Assistant Medical; Visit Provider Physician Assistant Medical
DX: R11.2 Nausea with vomiting, unspecified (principal)
CPT/HCPCS: 80053; 83690; 82150; 85025

== ENCOUNTER 2020-02-29 09:20 | Emergency (ER) | payer MEDICARE, SELFPAY ==
[2020-02-29] VITALS (49 sets, daily range): BP systolic 107–152; BP diastolic 52–124; PULSE 51–101; RESP 13–26; TEMP 36.7; O2SAT 81–100
--- NOTE | 2020-02-29 09:15 | RT.EKG_ITS ---
APPROVED REPORT Exam: Resting ECG Patient Location: E HR:58 bpm ECG Measurements Heart Rate 58 AXIS MD 162 P 39 QRSd 93 QRS -19 QT 429 T 39 QTc 421 Conclusion Sinus bradycardia...rate< 60 Low voltage, extremity leads...all extremity leads <0.5mV I have reviewed and interpreted ECG and agree with software generated interpretation.
--- NOTE | 2020-02-29 09:34 | ED.GENADUL_ITS ---
Discharge Plan Disposition Patient Disposition: HOME Condition: Improving Discharge Details Clinical Impression: Thoracic back pain, Abdominal muscle pain Primary Care Provider: Meme Rosa V ED Provider: Kamille Owusu Home Meds and New Rx's Prescriptions: New lidocaine [Lidoderm] 5 % adhesive patch,medicated 1 patch TP DAILY PRN (Reason: pain) Qty: 15 RF: 0 Continued clonazepam 1 MG tablet 1 mg PO BID RF: 0 nitroglycerin [Nitrostat] 0.4 MG tablet, sublingual 0.4 mg Sublingual PRN PRNRF: 0 omeprazole 20 MG capsule,delayed release(DR/EC) 20 mg PO DAILY@0730 RF: 0 atorvastatin [Lipitor] 20 MG tablet 20 mg PO QPM RF: 0 escitalopram oxalate [Lexapro] 20 MG tablet 40 mg PO DAILY RF: 0 albuterol sulfate [ProAir HFA] 200 PUFF HFA aerosol inhaler 2 puff Inhalation QID PRN PRNRF: 0 metoprolol tartrate 25 MG tablet 25 mg PO BID RF: 0 oxybutynin chloride 5 MG tablet 1 tab PO BID RF: 0 isosorbide mononitrate 30 MG tablet extended release 24 hr 30 mg PO DAILY Qty: 30 RF: 0 calcium citrate [Calcitrate] 200 mg (950 mg) Tablet 200 mg PO BID RF: 0 cholecalciferol (vitamin D3) [Vitamin D3] 2,000 unit Tablet 2,000 unit PO DAILY RF: 0 Incruse Ellipta 62.5 mcg/actuation Blister With Device 1 inh INHALATION DAILY RF: 0 ondansetron 4 mg tablet,disintegrating 4 mg PO Q8H PRNQty: 10 RF: 0 Discharge Instructions Instructions: Abdominal Pain (ED), Musculoskeletal Pain (ED), Back Pain (ED) Additional Instructions: Alternate ice and heat to the affected area(s) several times daily for 20 minutes at a time. You can use the Lidoderm patches as needed directed for pain. Alternate tylenol and motrin as needed and directed for pain. Follow-up with your primary care doctor in 1 week. Return to the emergency department with any worsening or new concerning symptoms. Discharge Data Discharge Date/Time-TO BE ENTERED AT DEPARTURE: 02/29/20 14:23 Discharge Physician: Kamille Owusu Medical Decision Making 0965 -- 69-year-old female presents with left upper quadrant abdominal pain with radiation to her back since this morning. She did describe to the triage nurse that she had shortness of breath the past w eeks, worse over the past 2 days, but she states this is no worse than usual. She denies any shortness of breath or pain at present. She states she only has pain in her left upper quadrant with radiation around to her left mid back that occurs only with movement. EKG on arrival notes a rate of 58, sinus with no acute ST-T wave ischemic findings. Palpation of left upper quadrant reproduces left mid back pain but she states does not have abdominal tenderness with this. Her lungs are clear. Her oxygen saturation is 97% on room air during my evaluation. Differential diagnosis includes gastritis, pneumonia, PE, abdominal wall or thoracic muscle strain, shingles, etc. Will place an IV, bolus of fluids, screening labs, CT chest abdomen pelvis and give a Lidoderm patch and Toradol and reassess. 1330 -- Labs and imaging reviewed and unremarkable. Troponin negative x2. Patient was noted to have oxygen saturation ranging between mid 80s to high 90s. She initially had stated that she is on oxygen at home only occasionally but then stated that she is usually on it multiple times throughout the day. Patient placed on 1 L nasal cannula and oxygen saturation 97%. She denies any shortness of breath, chest pain or abdominal pain. Patient feels comfortable going home. She had complete resolution of her pain after the Toradol and Lidoderm patch. Advised to follow up with the primary care doctor for re-evaluation. Usual and customary return precautions given prior to discharge. Medical Records Medical records reviewed: Yes I reviewed the patient's medical records. Imaging Data Radiologic Study: Radiologist's impression: CT Angiography Chest With Contrast Exam date and time: 02/29/2020 11:07 AM Age: 69 years old Clinical indication: Other: Back pain, upper abd pain; Abdominal pain; Acute TECHNIQUE: Imaging protocol: Computed tomographic angiography of the chest with intravenous contrast. 3D rendering (Not supervised by radiologist): MIP and/or 3D reconstructed images were created by the technologist. Contrast volume: 100 ml; Contrast route: INTRAVENOUS (IV); COMPARISON: CT CHEST HIGH RESOLUTION 06/10/2013 1:33 PM FINDINGS: Pulmonary arteries: No evidence of pulmonary embolus to the segmental level. Aorta: No aneurysm of the aorta. No dissection of the aorta. Lungs: Moderate panlobular emphysematous changes Pleural space: Unremarkable. No pneumothorax. No pleural effusion. Heart: Unremarkable. No cardiomegaly. No pericardial effusion. Mediastinal space: Small hiatal hernia Lymph nodes: Unremarkable. No enlarged lymph nodes. Bones/joints: Compression fracture T8 of unknown age Soft tissues: Unremarkable. IMPRESSION: 1. No evidence of pulmonary embolus to the segmental level. 2. No aneurysm of the aorta. 3. No dissection of the aorta. CT Angiography Abdomen and Pelvis With Contrast Exam date and time: 02/29/2020 11:07 AM Age: 69 years old Clinical indication: Other: Back pain, upper abd pain; Abdominal pain; Acute TECHNIQUE: Imaging protocol: Computed tomographic angiography of the abdomen and pelvis with intravenous contrast material. 3D rendering (Not supervised by radiologist): MIP and/or 3D reconstructed images were created by the technologist. Contrast volume: 100 ml; Contrast route: INTRAVENOUS (IV); COMPARISON: CT CHEST HIGH RESOLUTION 06/10/2013 1:33 PM FINDINGS: Mediastinal space: Small hiatal hernia contains fat Aorta: No aneurysm of the aorta. No dissection of the aorta. Celiac trunk and mesenteric arteries: No occlusion or significant stenosis. Renal arteries: No occlusion or significant stenosis. Right iliac arteries: No occlusion or significant stenosis. Left iliac arteries: No occlusion or significant stenosis. Liver: No mass. Gallbladder and bile ducts: The common duct is prominent. It measures 11 millimeters. This may be due to post cholecystectomy state and elderly status. However, if biliary obstruction is suspected clinically, recommend further evaluation Pancreas: Unremarkable. No mass. No ductal dilation. Spleen: Unremarkable. No splenomegaly. Adrenals: Unremarkable. No mass. Kidneys and ureters: Unremarkable. No solid mass. No hydronephrosis. Stomach and bowel: Unremarkable. No obstruction. No mucosal thickening. Appendix: No evidence of appendicitis. Intraperitoneal space: Unremarkable. No free air. No significant fluid collection. Lymph nodes: Unremarkable. No enlarged lymph nodes. Urinary bladder: Unremarkable. No mass. Reproductive: Unremarkable as visualized. Bones/joints: Compression fracture of unknown age L1 Soft tissues: Unremarkable. Other findings: Motion artifact degrades images IMPRESSION: 1. No aneurysm of the aorta. 2. No dissection of the aorta. Lab Data Lab results reviewed: Yes I reviewed the patient's lab results. Labs: Laboratory Tests Range/Units 02/29/20 02/29/20 02/29/20 09:47 09:47 09:47 WBC (4.4-10.8) 10^3/uL 10.82 H RBC (3.93-5.22) 10^6/uL 4.16 Hgb (11.2-15.7) g/dL 12.3 Hct (36.0-46.0) % 36.9 MCV (80-95) fL 88.7 MCH (27.0-33.0) pg 29.6 MCHC (32.0-36.0) % 33.3 RDW (11.7-14.6) % 12.9 Plt Count (130-400) 10^3/uL 371 MPV (8.0-11.0) fL 9.0 Immature Gran % 0.4 Neutrophils % 74.4 Lymphocytes % 15.6 Monocytes % 7.2 Eosinophils % 1.8 Basophils % 0.6 Nucleated RBC % % 0 Absolute Neutrophils (1.2-6.7) 10^3/uL 8.05 H Absolute Lymphocytes (1.2-3.4) 10^3/uL 1.69 Absolute Monocytes (0.1-0.8) 10^3/uL 0.78 Absolute Eosinophils (0.0-0.7) 10^3/uL 0.19 Absolute Basophils (0.0-0.2) 10^3/uL 0.06 PT (9.3-11.0) sec 10.0 INR (0.9-1.1) 1.0 APTT (21.0-27.5) sec 25.0 Sodium (136-145) mmol/L 138 Potassium (3.5-5.1) mmol/L 3.9 Chloride (98-107) mmol/L 103 Carbon Dioxide (21.0-32.0) mmol/L 30.3 Anion Gap (3-11) mmol/L 4.7 BUN (7-18) mg/dL 12 Creatinine (0.55-1.02) mg/dL 0.91 Estimated GFR/1.73 m2 (mL/min/1.73m2) >= 60.00 Glucose (74-106) mg/dL 89 Calcium (8.5-10.1) mg/dL 8.7 Magnesium (1.8-2.4) mg/dL 1.9 Total Bilirubin (0.2-1.0) mg/dL 0.3 AST (15-37) U/L 17 ALT (14-59) U/L 13 L Alkaline Phosphatase (46-116) U/L 107 Troponin I (<0.06) ng/mL < 0.05 Total Protein (6.4-8.2) g/dL 7.2 Albumin (3.4-5.0) g/dL 3.4 Lipase (73-393) U/L Range/Units 02/29/20 02/29/20 09:47 13:02 WBC (4.4-10.8) 10^3/uL RBC (3.93-5.22) 10^6/uL Hgb (11.2-15.7) g/dL Hct (36.0-46.0) % MCV (80-95) fL MCH (27.0-33.0) pg MCHC (32.0-36.0) % RDW (11.7-14.6) % Plt Count (130-400) 10^3/uL MPV (8.0-11.0) fL Immature Gran % Neutrophils % Lymphocytes % Monocytes % Eosinophils % Basophils % Nucleated RBC % % Absolute Neutrophils (1.2-6.7) 10^3/uL Absolute Lymphocytes (1.2-3.4) 10^3/uL Absolute Monocytes (0.1-0.8) 10^3/uL Absolute Eosinophils (0.0-0.7) 10^3/uL Absolute Basophils (0.0-0.2) 10^3/uL PT (9.3-11.0) sec INR (0.9-1.1) APTT (21.0-27.5) sec Sodium (136-145) mmol/L Potassium (3.5-5.1) mmol/L Chloride (98-107) mmol/L Carbon Dioxide (21.0-32.0) mmol/L Anion Gap (3-11) mmol/L BUN (7-18) mg/dL Creatinine (0.55-1.02) mg/dL Estimated GFR/1.73 m2 (mL/min/1.73m2) Glucose (74-106) mg/dL Calcium (8.5-10.1) mg/dL Magnesium (1.8-2.4) mg/dL Total Bilirubin (0.2-1.0) mg/dL AST (15-37) U/L ALT (14-59) U/L Alkaline Phosphatase (46-116) U/L Troponin I (<0.06) ng/mL < 0.05 Total Protein (6.4-8.2) g/dL Albumin (3.4-5.0) g/dL Lipase (73-393) U/L 52 ECG Data Attestation: I personally reviewed and interpreted this ECG (s) as follows: Interpretation: Rate of 68, sinus, no acute ST ovation or depression. MO 152. QRS 93. QTc 421. HPI General Mode of arrival: ambulatory . Date/Time Provider Initiated Documentation: 02/29/20 09:29 . Limitations to Documentation: no limitations . Information obtained by: patient . HPI Narrative: Patient is a 6-year-old female with a history of COPD, former smoker, PTSD, GERD and cholecystectomy and appendectomy presents for left upper quadrant abdominal and mid back pain since this morning. Patient states the pain is worse with movement and denies any symptoms at present. She states she feels that the pain radiates from her left upper quadrant and wraps around to her left mid back. She states the pain is on both sides of her mid back but it is worse on the left. She has not taken any medication for symptoms. She states she has occasional shortness of breath with exertion and states this is no worse than usual. She states she has been eating and drinking normally and denies any fever, nausea, vomiting, diarrhea, urinary symptoms, cough, chest pain, recent travel, recent known sick contacts or recent known exposure to coronavirus. She denies any recent antibiotics, recent new medications or recent hospitalizations. She denies any known injury. Related Data Home Medications Medication Instructions Recorded Confirmed clonazepam 1 mg PO BID 09/06/12 02/29/20 nitroglycerin [Nitrostat] 0.4 mg SUBLINGUAL PRN PRN 09/06/12 02/29/20 omeprazole 20 mg PO DAILY@0730 09/06/12 02/29/20 atorvastatin [Lipitor] 20 mg PO QPM 09/16/12 02/29/20 escitalopram oxalate [Lexapro] 40 mg PO DAILY 09/16/12 02/29/20 albuterol sulfate [ProAir HFA] 2 puff INHALATION QID PRN PRN 10/06/15 02/29/20 metoprolol tartrate 25 mg PO BID 10/06/15 02/29/20 oxybutynin chloride 1 tab PO BID 01/30/16 02/29/20 isosorbide mononitrate 30 mg PO DAILY #30 tabcr 03/29/16 02/29/20 Incruse Ellipta 1 inh INHALATION DAILY 04/05/19 02/29/20 calcium citrate [Calcitrate] 200 mg PO BID 04/05/19 02/29/20 cholecalciferol (vitamin D3) 2,000 unit PO DAILY 04/05/19 02/29/20 [Vitamin D3] ondansetron 4 mg PO Q8H PRN #10 tab 09/27/19 02/29/20 lidocaine [Lidoderm] 1 patch TP DAILY PRN #15 each 02/29/20 Previous Rx's Medication Instructions Recorded isosorbide mononitrate 30 mg PO DAILY #30 tabcr 03/29/16 ondansetron 4 mg PO Q8H PRN #10 tab 09/27/19 lidocaine [Lidoderm] 1 patch TP DAILY PRN #15 each 02/29/20 Allergies Allergy/AdvReac Type Severity Reaction Status Date / Time lamotrigine [From Lamictal] Allergy Intermediate Skin Rash Verified 02/29/20 10:30 trazodone AdvReac Severe Nightmares Verified 02/29/20 10:30 mirtazapine [From Remeron] AdvReac Intermediate nightmares Verified 02/29/20 10:30 codeine AdvReac Mild Nausea Verified 02/29/20 10:30 Sulfa (Sulfonamide AdvReac Mild Nausea Verified 02/29/20 10:30 Antibiotics) General Stated Complaint: SOB ROSHNI: 2 Review of Systems All systems reviewed & are unremarkable except as noted in HPI and below Constitutional Constitutional: Reports as per HPI, Denies chills and Denies fever(s) Eyes Eyes: Denies blurry vision ENT Ears, Nose, Mouth, and Throat: Denies dizziness, Denies sore throat and Denies throat swelling Cardiovascular Cardiovascular: Denies chest pain and Denies dyspnea Respiratory Respiratory: Denies cough and Denies dyspnea Gastrointestinal Gastrointestinal: Reports abdominal pain, Denies diarrhea and Denies vomiting Genitourinary Genitourinary: Denies hematuria and Denies dysuria Musculoskeletal Musculoskeletal: Reports back pain and Denies numbness Integumentary/Breasts Skin/Breast: Denies lesions and Denies rash Neurologic Neurologic: Denies dizziness, Denies localized weakness and Denies numbness Allergic/Immunologic Allergic/Immunologic: Denies throat swelling [facility] Medical History (Updated 02/29/20 @ 14:13 by Kamille Owusu DO) Adenomatous polyps Tubular adenomax 2, tubulovillous adenoma x 2, 08/23/18, Dr Comfort Abad, repeat 2 years. Anxiety Chest pain Depression, major, recurrent Early menopause Fatigue Former smoker GERD (gastroesophageal reflux disease) Hyperlipidemia Osteoporosis Prinzmetal angina PTSD (post-traumatic stress disorder) Stage 2 moderate COPD by GOLD classification Urge incontinence Surgical History History of appendectomy History of cardiac catheterization History of cholecystectomy History of colonoscopy 08/23/18: Pt reports no hx of previous colonoscopy Family History (Updated 08/23/18 @ 08:47 by Tonia Webster) Other Cancer Heart disease Social History Smoking/Tobacco Use Status: Former Tobacco Use Smoking risk assessment performed?: Yes Alcohol Intake: never Drug use: Never Substance use type: does not use Do you feel safe at home: Yes Do you feel safe in your relationship?: Yes Exam Const General: cooperative, healthy appearing and no acute distress Orientation: alert, awake and oriented x3 HENMT Head: normal to inspection Face and sinus: normal facial exam Eyes General: appearance normal, both eyes and all related structures EOM: EOM intact bilaterally Neck Neck: normal visual inspection and No submandibular swelling Lymphatic: no lymphadenopathy noted Chest Chest: normal inspection of the chest and no tenderness Resp Effort & Inspection: normal respiratory effort and able to speak in complete sentences Auscultation: clear to auscultation bilaterally Cardio Rate: regular rate Rhythm: regular rhythm GI Inspection: normal to inspection Palpation: soft, not firm, not rigid and tender (Palpation of epigastrium and LUQ reproduces left mid back pain) Auscultation: hypoactive bowel sounds Back/Spine/Pelvis Thoracic/Lumbar Spine: thoracic and lumbar spine normal to inspection, No th oracic spinal tenderness and No lumbar spinal tenderness Back/spine/pelvis image: 1. Tenderness to palpation of left mid back. There is no evidence of rash, trauma, cellulitis, edema or ecchymosis. There is no crepitus, induration or fluctuance. There is no tenderness to palpation of right mid back Skin General skin exam: no rashes or lesions noted Neuro General: patient alert, patient awake and patient oriented x3 Cognition: normal cognition Speech: speech normal Motor: muscle tone normal throughout Sensory Exam: no sensory deficits noted Extrem General: normal to inspection, full ROM, capillary refill normal, no calf tenderness bilaterally and no edema Psych Appearance: grossly normal Mental Status: mental status grossly normal Speech and Movement: speech and movement normal Affect: normal affect Course Vital Signs Vital signs: Vital Signs Temperature 98.1 F 02/29/20 09:29 Pulse 62 02/29/20 09:29 Respiratory Rate 26 H 02/29/20 09:29 Blood Pressure 120/106 H 02/29/20 09:29 Pulse Oximetry 87 L 02/29/20 09:29 Temperature 98.1 F 02/29/20 09:29 Temperature Source Temporal Artery Scan 02/29/20 09:29 Pulse 62 02/29/20 09:29 Respiratory Rate 26 H 02/29/20 09:29 Blood Pressure 120/106 H 02/29/20 09:29 Blood Pressure Position Supine 02/29/20 09:29 Pulse Oximetry 87 L 02/29/20 09:29 Oxygen Delivery Method Room Air 02/29/20 09:29 Oxygen Flow Rate 0 02/29/20 09:29 Pain Level 8 02/29/20 09:29
[2020-02-29 10:03] LABS: Abs Immature Grans 0.04 10^3/uL (0.0-0.06); Absolute Basophil Count 0.06 10^3/uL (0.0-0.2); Absolute Eosinophil Count 0.19 10^3/uL (0.0-0.7); Absolute Lymphocyte Count 1.69 10^3/uL (1.2-3.4); Absolute Monocyte Count 0.78 10^3/uL (0.1-0.8); Basophils % 0.6; Eosinophils % 1.8; HCT 36.9 % (36.0-46.0); HGB 12.3 g/dL (11.2-15.7); Immature Grans % 0.4; Lymphocytes % 15.6; MCH 29.6 pg (27.0-33.0); MCHC 33.3 % (32.0-36.0); MCV 88.7 fL (80-95); Monocytes % 7.2; Neutrophils % 74.4; Nucleated RBC 0 %; Platelet Count 371 10^3/uL (130-400); RBC 4.16 10^6/uL (3.93-5.22); RDW 12.9 % (11.7-14.6); RDW-SD 41.8 fL; WBC 10.82 10^3/uL (4.4-10.8)
--- NOTE | 2020-02-29 10:09 | DI.CT_ITS ---
EXAM: CT CHEST PE ABD PELVIS W CLINICAL HISTORY: sob, back pain, upper abd pain. TECHNIQUE: Imaging Protocol: Axial CT angiography was performed with multi-slice acquisition and mu lti-planar and/or 3D reconstructions. CONTRAST MATERIAL: Intravenous: Omnipaque 350 Contrast volume:100 mL COMPARISON: CT CHEST WITHOUT CONTRAST from 06/10/2013 CT CHEST WITHOUT CONTRAST from 06/10/2013 CT CHEST HIGH RESOLUTION from 06/10/2013 CR CHEST 2 VIEWS PA,LAT from 12/31/2015 CR,XR XR CHEST 2V PA LATERAL from 04/05/[address] ABDOMEN PELVIS W from 09/03/2019 FINDINGS: CHEST: Pulmonary Arteries: No evidence of filling defect to suggest pulmonary emboli. Tracheobronchial tree: Patent where visualized. Mediastinum and Sarah: No dominant adenopathy or fluid collection. Small hiatal hernia. Pulmonary parenchyma: No consolidation or dominant measurable mass. Moderately severe centrilobular e mphysematous changes. Biapical parenchymal scarring. 0.6 cm nodule in the right upper lobe laterall y. Pleura: No effusion or pneumothorax. Heart: The heart is not dilated. No coronary artery calcifications are seen. No pericardial effusion. Aorta: Thoracic aorta non-dilated. No evidence of dissection. Mild atherosclerosis. Bones: Degenerative changes.There is a T8 compression fracture deformity which was not present on the chest x-ray from 04/05/2019. ABDOMEN: The examination is limited due to patient motion artifact. Liver: Normal density. No measurable mass. Portal, Superior Mesenteric, and Splenic Veins: Unremarkable. Gallbladder and Biliary Tract: Status post cholecystectomy. Unchanged dilatation of the extrahepatic bile duct. Pancreas: Normal density, no abnormal calcifications or inflammatory process. Spleen: Normal. Adrenals: No masses seen. Kidneys: Normal size, contour and axis. No radiodense stones or obstructive uropathy. No masses seen. Abdominal Aorta: Abdominal portion non-dilated. Mild atherosclerosis. Bowel: No obstruction or bowel wall thickening. No evidence of appendicitis. There is a small hiatal hernia. Peritoneal Cavity: No ascites, collection or mesenteric inflammatory response. Lymph Nodes: Within normal limits. Bones: Degenerative changes are present in the lumbar spine. Soft Tissues: Unremarkable. PELVIS: Bladder: Symmetric distention, no gross wall thickening. Reproductive Organs: Unremarkable as visualized. Lymph Nodes: Within normal limits. Bones: Degenerative changes are present. There is an old L1 compression deformity. IMPRESSION: 1. No evidence of pulmonary embolism, thoracic aortic aneurysm or dissection. 2. T8 compression fracture of indeterminate age. It was not present on the most recent examination th at covered this area on 04/05/2019. 3. 0.6 cm nodule in the right upper lobe. Follow-up should be based on the patient's past medical his tory. If patient is high risk, a CT scan of the chest is in 1 year is recommended. 4. No acute abdominal or pelvic process. RADIATION DOSE DELIVERED: 1,585.49mGy.cm Total DLP 1,585.49mGy.cm Total DLP DATA REPOSITORY: All CT scans at this facility are submitted to the National Radiology Data Registry (NRDR) Dose Index Registry (DIR) with the [employer] ([employer]). RADIATION OPTIMIZATION: All CT scans at this facility use at least one of these dose optimization te chniques: automated exposure control; mA and/or kV adjustment per patient size (includes targeted exa ms where dose is matched to clinical indication); or iterative reconstruction.
[2020-02-29 10:17] LABS: Absolute Neutrophil Count 8.05 10^3/uL (1.2-6.7)
[2020-02-29 10:23] LABS: ALT 13 U/L (14-59); AST 17 U/L (15-37); Albumin 3.4 g/dL (3.4-5.0); Alkaline Phosphatase 107 U/L (46-116); Anion Gap 4.7 mmol/L (3-11); BUN 12 mg/dL (7-18); Bilirubin, Total 0.3 mg/dL (0.2-1.0); CO2 30.3 mmol/L (21.0-32.0); CREATININE 0.91 mg/dL (0.55-1.02); Calcium 8.7 mg/dL (8.5-10.1); Chloride 103 mmol/L (98-107); Glucose 89 mg/dL (74-106); Magnesium 1.9 mg/dL (1.8-2.4); Potassium 3.9 mmol/L (3.5-5.1); Sodium 138 mmol/L (136-145); Total Protein 7.2 g/dL (6.4-8.2)
[2020-02-29] MEDS: Ketorolac 30 MG/ML VIAL IVP (10:26)
[2020-02-29] MEDS: Normal Saline 500 ML IV (10:26)
[2020-02-29] MEDS: Lidocaine 5% Patch 1 PATCH TP (10:28)
[2020-02-29 10:30] LABS: Troponin I < 0.05 ng/mL (<0.06)
[2020-02-29 10:46] LABS: Lipase 52 U/L (73-393)
[2020-02-29] MEDS: Normal Saline - Diluent 50 ML VIAL IV (11:10)
[2020-02-29] MEDS: Omnipaque 350 MG/ML 100 ML BTL IJ (11:11)
--- NOTE | 2020-02-29 11:44 | NUR.NOTE ---
Tram desats to low 80's with activity--i.e up to commode or over to CT scan for testing---Sao2 rises with rest --high 80's in 5 min--low 90's within ten minutes. Dr Owusu notified.Nursing Note:
--- NOTE | 2020-02-29 11:58 | DI.VRAD_ITS ---
PROCEDURE INFORMATION: Exam: CT Angiography Chest With Contrast Exam date and time: 02/29/2020 11:07 AM Age: 69 years old Clinical indication: Other: Back pain, upper abd pain; Abdominal pain; Acute TECHNIQUE: Imaging protocol: Computed tomographic angiography of the chest with intravenous contrast. 3D rendering (Not supervised by radiologist): MIP and/or 3D reconstructed images were created by the technologist. Contrast volume: 100 ml; Contrast route: INTRAVENOUS (IV); COMPARISON: CT CHEST HIGH RESOLUTION 06/10/2013 1:33 PM FINDINGS: Pulmonary arteries: No evidence of pulmonary embolus to the segmental level. Aorta: No aneurysm of the aorta. No dissection of the aorta. Lungs: Moderate panlobular emphysematous changes Pleural space: Unremarkable. No pneumothorax. No pleural effusion. Heart: Unremarkable. No cardiomegaly. No pericardial effusion. Mediastinal space: Small hiatal hernia Lymph nodes: Unremarkable. No enlarged lymph nodes. Bones/joints: Compression fracture T8 of unknown age Soft tissues: Unremarkable. IMPRESSION: 1. No evidence of pulmonary embolus to the segmental level. 2. No aneurysm of the aorta. 3. No dissection of the aorta. PROCEDURE INFORMATION: Exam: CT Angiography Abdomen and Pelvis With Contrast Exam date and time: 02/29/2020 11:07 AM Age: 69 years old Clinical indication: Other: Back pain, upper abd pain; Abdominal pain; Acute TECHNIQUE: Imaging protocol: Computed tomographic angiography of the abdomen and pelvis with intravenous contrast material. 3D rendering (Not supervised by radiologist): MIP and/or 3D reconstructed images were created by the technologist. Contrast volume: 100 ml; Contrast route: INTRAVENOUS (IV); COMPARISON: CT CHEST HIGH RESOLUTION 06/10/2013 1:33 PM FINDINGS: Mediastinal space: Small hiatal hernia contains fat Aorta: No aneurysm of the aorta. No dissection of the aorta. Celiac trunk and mesenteric arteries: No occlusion or significant stenosis. Renal arteries: No occlusion or significant stenosis. Right iliac arteries: No occlusion or significant stenosis. Left iliac arteries: No occlusion or significant stenosis. Liver: No mass. Gallbladder and bile ducts: The common duct is prominent. It measures 11 millimeters. This may be due to post cholecystectomy state and elderly status. However, if biliary obstruction is suspected clinically, recommend further evaluation Pancreas: Unremarkable. No mass. No ductal dilation. Spleen: Unremarkable. No splenomegaly. Adrenals: Unremarkable. No mass. Kidneys and ureters: Unremarkable. No solid mass. No hydronephrosis. Stomach and bowel: Unremarkable. No obstruction. No mucosal thickening. Appendix: No evidence of appendicitis. Intraperitoneal space: Unremarkable. No free air. No significant fluid collection. Lymph nodes: Unremarkable. No enlarged lymph nodes. Urinary bladder: Unremarkable. No mass. Reproductive: Unremarkable as visualized. Bones/joints: Compression fracture of unknown age L1 Soft tissues: Unremarkable. Other findings: Motion artifact degrades images IMPRESSION: 1. No aneurysm of the aorta. 2. No dissection of the aorta. Dictated and Authenticated by: Barbara Acosta MD. Ordering:JESSICA Simental MD
[2020-02-29 13:33] LABS: Troponin I < 0.05 ng/mL (<0.06)
== END 2020-02-29 14:23 | disposition home or self-care (01) ==
PROVIDERS: Emergency Provider Physician Assistant; PCP Family Medicine
DX: M54.6 Pain in thoracic spine (principal); R10.12 Left upper quadrant pain; J44.9 Chronic obstructive pulmonary disease, unspecified; Z87.891 Personal history of nicotine dependence
CPT/HCPCS: 36415; 71275; 74177; 80053; 83690; 93005; 96361; 96374; 99285; 83735; 84484; 85025; 85610; 85730; 93010; J1885; J3490

== ENCOUNTER 2020-06-28 02:28 | Outpatient (CLI) | payer MEDICARE, SELFPAY ==
--- NOTE | 2020-06-28 | DI.DEXA_ITS ---
EXAM: XR DEXA BONE DENSITY W/WO NALDO CLINICAL HISTORY: WEDGE COMP FX,S22.060A TECHNIQUE: Routine DEXA evaluation of the lumbar spine, hip, or forearm. COMPARISON: CR LUMBAR SPINE AP, LAT from 12/09/2011 CR,XR XR CHEST 2V PA LATERAL from 04/05/2019 Prior DXA scans were reviewed, most recent being October 2012 FINDINGS: Performed on a [employer] unit. Lateral image: There is a wedge compression fracture of a midthoracic vertebra noted, probably T8. T his compression fracture was not evident on the lateral chest x-ray performed March 2019 Lumbar Spine total T-score: -3.7. October 2012 reading was -3.2 Hip total T-score:-2.2. The prior 2012 reading was also -2.2. Independent reading at the left femoral neck yields a T-score of -2.8 Forearm total T-score: -2.5 IMPRESSION: Bone mineral density measures in the osteoporosis range. Fracture risk is high. There is a T8 compre ssion fracture seen which was not evident on a lateral chest x-ray performed March 2019. Note: Any spine fracture indicates 5x risk for subsequent spine fracture and 2x risk for subsequent h ip fracture. World Health Organization criteria for BMD interpretation classify patients: Normal...... T- Score at or above -1.0 Osteopenic... T- Score between -1.0 and -2.5 Osteoporosis... T-Score at or below -2.5
== END 2020-06-28 02:48 ==
PROVIDERS: PCP Family Medicine; Visit Provider Family Medicine
DX: M81.0 Age-related osteoporosis without current pathological fracture (principal); S22.060A Wedge compression fracture of T7-T8 vertebra, initial encounter for closed fracture
CPT/HCPCS: 77080

== ENCOUNTER 2020-07-20 01:34 | Outpatient (CLI) | payer MEDICARE, SELFPAY ==
--- NOTE | 2020-07-20 09:00 | DI.MRI_ITS ---
Exam(s) MR BRAIN WO EXAM: MR BRAIN WO CLINICAL HISTORY: HEADACHE,R51.9,LIGHTHEADEDNESS,R42 TECHNIQUE: Multiplanar multisequence MRI of the brain was performed. COMPARISON: No previous for comparison. FINDINGS: The examination is limited due to patient motion artifact. VENTRICLES AND EXTRA AXIAL SPACES: Normal in size and morphology for the patient's age. MIDLINE SHIFT: None. CEREBRAL PARENCHYMA: No focus of restricted diffusion to suggest acute infarct. No space-occupying le dominique identified. There are areas of T2 hyperintensity on the FLAIR and T2 weighted images in the whit e matter most consistent with chronic microvascular ischemic disease. HEMORRHAGE: None. BRAINSTEM/CEREBELLUM: Normal. CALVARIUM: Normal. VISUALIZED PARANASAL SINUSES/MASTOIDS:Clear. Hyperintense signal seen in the right mastoid sinuses co nsistent with mastoiditis. [place]: Normal flow void. PITUITARY GLAND: Unremarkable. OTHER FINDINGS: None. IMPRESSION: 1. Age-related cerebral atrophy and chronic microvascular ischemic disease. 2. Right mastoiditis. 3. No acute intracranial process. DATA REPOSITORY:
== END 2020-07-20 01:54 ==
PROVIDERS: PCP Family Medicine; Visit Provider Family Medicine
DX: R51.9 Headache, unspecified (principal); R42 Dizziness and giddiness; G31.89 Other specified degenerative diseases of nervous system
CPT/HCPCS: 70551

== ENCOUNTER 2020-12-22 01:42 | Outpatient (CLI) | payer MEDICARE, SELFPAY ==
--- NOTE | 2020-12-22 | DI.US_ITS ---
Exam(s) US CAROTID EXAM: US CAROTID CLINICAL HISTORY: CEREBRAL ISCHEMIA,I67.82,LIGHTHEADEDNESS,R42,HEADACHE,R51.9. TECHNIQUE: Ultrasound carotids performed using grayscale, color-flow, and spectral Doppler imaging. COMPARISON: No exams were available for comparison FINDINGS: RIGHT CAROTID ARTERY: Plaque: None visualized. Velocity elevation: None. LEFT CAROTID ARTERY: Plaque: Mild calcific plaque in the carotid bulb in the proximal ICA. Velocity elevation: None. VERTEBRAL ARTERIES: Antegrade flow. Measurements: R Bulb: 37.3cm/s PS / 9.6cm/s ED R CCA: 61.1cm/s PS / 14.8cm/s ED R ECA: 59.1cm/s PS / 11.6cm/s ED R ICA Prox: 43.1cm/s PS /10.9cm/s ED R ICA Mid: 46.3cm/s PS / 14.8cm/s ED R ICA Distal: 54cm/s PS /25.1cm/s ED R Vert: 45cm/s PS / 14.1cm/s ED R SVR: 0.88 R DVR: 1.7 L Bulb: 41.1cm/s PS /10.9cm/s ED L CCA: 45cm/s PS / 15.4cm/s ED L ECA: 63.6cm/s PS /12.9cm/s ED L ICA Prox:32.8cm/s PS / 11.6cm/s ED L ICA Mid: 66.2cm/sPS / 25.7cm/s ED L ICA Distal: 72cm/s PS / 30.8cm/s ED L Vert: 40.5cm/s PS / 7.7cm/s ED L SVR: 1.6 L DVR: 2 IMPRESSION: No evidence for hemodynamically significant carotid stenosis. Criteria for Carotid Stenosis: Normal: ICA PSV <125 cm/s no plaque or intimal thickening is visible. <50% stenosis: ICA PSV <125 cm/s and plaque or intimal thickening is visible. 50-69% stenosis: ICA PSV is 125-250 cm/s and plaque is visible. >70% stenosis to near occlusion: ICA PSV >250 cm/s with visible plaque and luminal narrowing. DATA REPOSITORY:
== END 2020-12-22 02:02 ==
PROVIDERS: PCP Family Medicine; Visit Provider Nurse Practitioner Family
DX: R42 Dizziness and giddiness (principal); I67.82 Cerebral ischemia; R51.9 Headache, unspecified
CPT/HCPCS: 93880

== ENCOUNTER 2021-01-25 13:19 | Outpatient (REF) | payer MEDICARE, SELFPAY ==
[2021-01-25 19:23] LABS: HCT 40.6 % (36.0-46.0); HGB 13.5 g/dL (11.2-15.7); MCH 29.2 pg (27.0-33.0); MCHC 33.3 % (32.0-36.0); MCV 87.7 fL (80-95); MPV 9.1 fL (8.0-11.0); Platelet Count 442 10^3/uL (130-400); RBC 4.63 10^6/uL (3.93-5.22); RDW 13.3 % (11.7-14.6); RDW-SD 43.2 fL; WBC 8.77 10^3/uL (4.4-10.8)
[2021-01-25 23:18] LABS: BUN 11 mg/dL (7-18); CREATININE 0.9 mg/dL (0.55-1.02); Glucose 94 mg/dL (74-106); Total Protein 6.8 g/dL (6.4-8.2)
[2021-01-25 23:19] LABS: ALT 20 U/L (14-59); AST 19 U/L (15-37); Albumin 3.5 g/dL (3.4-5.0); Alkaline Phosphatase 71 U/L (46-116); Anion Gap 10.4 mmol/L (3-11); Bilirubin, Total 0.2 mg/dL (0.2-1.0); CO2 28.6 mmol/L (21.0-32.0); Chloride 103 mmol/L (98-107); Potassium 4.4 mmol/L (3.5-5.1); Sodium 142 mmol/L (136-145)
== END 2021-01-25 13:20 | disposition home or self-care (01) ==
LOC: NCHCN 13:19
PROVIDERS: PCP Family Medicine; Visit Provider Family Medicine
DX: D64.9 Anemia, unspecified (principal); I67.82 Cerebral ischemia
CPT/HCPCS: 80053; 85027

== ENCOUNTER → 2021-04-27 12:47 | Outpatient (BNVA) | payer MEDICARE, SELFPAY | PROVIDERS: PCP Family Medicine; Referring Provider Family Medicine; Visit Provider Psychiatry & Neurology Neurology | DX: F03.90 Unspecified dementia, unspecified severity, without behavioral disturbance, psychotic disturbance, mood disturbance, and anxiety (principal); R51.9 Headache, unspecified; J44.9 Chronic obstructive pulmonary disease, unspecified | CPT/HCPCS: 99215 ==

== ENCOUNTER 2021-04-29 12:52 | Outpatient (REF) | payer MEDICARE, SELFPAY ==
[2021-04-29 12:27] LABS: HCT 43.3 % (36.0-46.0); HGB 14.3 g/dL (11.2-15.7); MCH 29.7 pg (27.0-33.0); Platelet Count 446 10^3/uL (130-400); RBC 4.81 10^6/uL (3.93-5.22); RDW 13.2 % (11.7-14.6); RDW-SD 43.9 fL; WBC 8.15 10^3/uL (4.4-10.8)
[2021-04-29 12:45] LABS: ALT 20 U/L (14-59); AST 15 U/L (15-37); Albumin 3.7 g/dL (3.4-5.0); Alkaline Phosphatase 78 U/L (46-116); Anion Gap 8.3 mmol/L (3-11); BUN 8 mg/dL (7-18); Bilirubin, Total 0.2 mg/dL (0.2-1.0); CO2 28.7 mmol/L (21.0-32.0); CREATININE 0.8 mg/dL (0.55-1.02); Calcium 9.1 mg/dL (8.5-10.1); Chloride 103 mmol/L (98-107); Glucose 88 mg/dL (74-106); Potassium 4.5 mmol/L (3.5-5.1); Sodium 140 mmol/L (136-145); Total Protein 7.1 g/dL (6.4-8.2)
[2021-04-29 12:51] LABS: Hemoglobin A1C 5.7 % (<5.7)
== END 2021-04-29 12:53 | disposition home or self-care (01) ==
LOC: NCHCN 12:52
PROVIDERS: PCP Family Medicine; Visit Provider Family Medicine
DX: R63.4 Abnormal weight loss (principal); R73.09 Other abnormal glucose
CPT/HCPCS: 80053; 85027; 83036

== ENCOUNTER 2021-04-29 13:22 | Outpatient (REF) | payer MEDICARE, SELFPAY ==
[2021-04-29 13:07] LABS: TSH (W/Ref FT4) 1.18 uIU/mL (0.36-3.74); Vitamin B12 262 pg/mL (193-986)
== END 2021-04-29 13:23 | disposition home or self-care (01) ==
LOC: LBN 13:22
PROVIDERS: PCP Family Medicine; Visit Provider Psychiatry & Neurology Neurology
DX: R41.3 Other amnesia (principal); G62.9 Polyneuropathy, unspecified
CPT/HCPCS: 82607; 84443

== ENCOUNTER 2021-05-13 02:47 | Outpatient (CLI) | payer MEDICARE, SELFPAY ==
--- NOTE | 2021-05-13 | DI.CTLCSR_ITS ---
Exam(s) CT CHEST LUNG CANCER SCREEN EXAM: CT CHEST LUNG CANCER SCREEN CLINICAL HISTORY: FORMER SMOKER Z87.891 LUNG NODULE R91.8, SCREENING FOR LUNG CANCER. TECHNIQUE: Imaging Protocol: Low Dose Technique CONTRAST MATERIAL: None COMPARISON: CT CHEST FOR PULMONARY EMBOLUS from 12/03/[address] CHEST PE ABD PELVIS W from 02/29/2020 FINDINGS: CHEST: LUNGS: There are emphysematous changes. Scarring in both lung apices is noted. Tiny benign-appearin g 2 millimeter nodule in the lateral aspect of the left upper lobe noted. There are no confluent inf iltrates. No pleural effusions. Benign-appearing increased markings are noted in the anterior segme nt of the right upper lobe. No ominous nodules. No pleural effusions. No significant focal finding s in the trachea and mainstem bronchi. MEDIASTINUM: There is no obvious hilar nor mediastinal adenopathy. CARDIAC: Heart size is normal. There is no pericardial effusion.Caliber of the thoracic aorta is wit hin normal limits. OTHER: OSSEOUS: There is a high-grade compression fracture of the T8 vertebral body. This has further progr essed when compared to the CT scan of February 2020.. Requires investigation there is superior endpl ate Schmorl's node invagination of L1 vertebral body. This is unchanged. IMPRESSION: 1. COPD emphysematous changes. No ominous pulmonary nodules. No pleural effusions nor obvious intra thoracic adenopathy. 2. High-grade T8 compression fracture noted. This has further progressed when compared to February 17 3. Lung RADS Cat 1S - Negative: No nodules and definitely benign nodules T8 compression fracture as described above. Lung-RADS 1.0 CATEGORIES: Category 0 - Prior chest CT exam(s) being located for comparison. Category 1 - Annual screening in 12 months. No nodules or definitely benign nodules. Category 2 - Annual screening in 12 months. Benign appearance. Nodules with low likelihood of becomin g active cancer. Category 3 - 6-month follow-up. Probably benign. Short-term follow-up suggested. Nodules with low lik elihood of becoming active cancer. Category 4A - 3-month follow-up and CT/PET if >8 mm in size. Suspicious finding. Findings which requi re additional testing. Category 4B - Findings which require additional testing and tissue sampling. Category 4X - Category 3 or 4 nodules with additional features or imaging findings that increases the suspicion of malignancy. Modifier S- Potentially clinically significant findings (non lung cancer) RADIATION DOSE DELIVERED: 69.55mGy.cm Total DLP 1.84mGy CTDIvol DATA REPOSITORY: All CT scans at this facility are submitted to the National Radiology Data Registry (NRDR) Dose Index Registry (DIR) with the [employer] (ACR). RADIATION OPTIMIZATION: All CT scans at this facility use at least one of these dose optimization te chniques: automated exposure control; mA and/or kV adjustment per patient size (includes targeted exa ms where dose is matched to clinical indication); or iterative reconstruction.
== END 2021-05-13 03:07 ==
PROVIDERS: PCP Family Medicine; Visit Provider Family Medicine
DX: Z87.891 Personal history of nicotine dependence (principal); R91.8 Other nonspecific abnormal finding of lung field; Z12.2 Encounter for screening for malignant neoplasm of respiratory organs; J44.9 Chronic obstructive pulmonary disease, unspecified; S22.060A Wedge compression fracture of T7-T8 vertebra, initial encounter for closed fracture
CPT/HCPCS: 71271

== ENCOUNTER 2021-08-26 18:49 | Outpatient (REF) | payer MEDICARE, SELFPAY ==
[2021-08-26 20:10] LABS: Anion Gap 11.1 mmol/L (3-11); BUN 14 mg/dL (7-18); CO2 24.9 mmol/L (21.0-32.0); CREATININE 0.8 mg/dL (0.55-1.02); Chloride 95 mmol/L (98-107); Glucose 94 mg/dL (74-106); Sodium 131 mmol/L (136-145)
== END 2021-08-26 18:50 | disposition home or self-care (01) ==
LOC: NCHCN 18:49
PROVIDERS: PCP Family Medicine; Visit Provider Nurse Practitioner Family
DX: R53.81 Other malaise (principal); K59.00 Constipation, unspecified
CPT/HCPCS: 80048

== ENCOUNTER 2021-11-10 17:45 | Outpatient (REF) | payer MEDICARE, SELFPAY | END 2021-11-10 17:46 | disposition home or self-care (01) | LOC: NCHCN 17:45 | PROVIDERS: PCP Family Medicine; Visit Provider Nurse Practitioner Family | DX: N39.41 Urge incontinence (principal) | CPT/HCPCS: 87077; 87086; 87186 ==

== ENCOUNTER 2022-02-14 13:46 | Outpatient (REF) | payer MEDICARE, SELFPAY ==
[2022-02-14 15:29] LABS: HGB 13.4 g/dL (11.2-15.7)
[2022-02-14 15:50] LABS: ALT 16 U/L (14-59); AST 18 U/L (15-37); Albumin 3.6 g/dL (3.4-5.0); Alkaline Phosphatase 74 U/L (46-116); Anion Gap 3.5 mmol/L (3-11); BUN 19 mg/dL (7-18); Bilirubin, Total 0.3 mg/dL (0.2-1.0); CO2 32.5 mmol/L (21.0-32.0); CREATININE 0.8 mg/dL (0.55-1.02); Calculated LDL 82 mg/dL (<100); Chloride 103 mmol/L (98-107); Cholesterol 179 mg/dL (<200); Estimated GFR 78.24 (mL/min/1.73m2); Glucose 94 mg/dL (74-106); HDL Cholesterol 88 mg/dL (40-60); Potassium 4.4 mmol/L (3.5-5.1); Sodium 139 mmol/L (136-145); Total Protein 7.4 g/dL (6.4-8.2); Triglyceride 48 mg/dL (<150)
[2022-02-14 15:55] LABS: Hemoglobin A1C 5.6 % (<5.7)
== END 2022-02-14 13:47 | disposition home or self-care (01) ==
LOC: NCHCN 13:46
PROVIDERS: PCP Family Medicine; Visit Provider Family Medicine
DX: R07.9 Chest pain, unspecified (principal); E87.1 Hypo-osmolality and hyponatremia; E78.5 Hyperlipidemia, unspecified
CPT/HCPCS: 80053; 80061; 83036; 85014; 85018

== ENCOUNTER → 2022-02-21 02:06 | Outpatient (CLI) | payer MEDICARE, SELFPAY ==
--- NOTE | 2022-02-21 09:15 | DI.NM_ITS ---
APPROVED REPORT Exam: Pharmacologic Patient Location: Out-Patient Room/Bed: Stress Nurse: Effie Markham RN Ordering Provider:KENRICK MARQUIS, Contact Number: [phone] BMI: 26.56 Baseline Rhythm: Sinus Bradycardia Indications: CHEST PAIN, DYSPNEA ON EXERTION Medical History Medical History: Dementia, Senule w/ delusions, Cerebral ischemia, HLD, COPD, Anxiety, PTSD, Depressi on, Tobacco use Cardiac Medications: ProAir HFA, Ellipta, Atorvastatin, Isosorbide mononitrate, Pantoprazole, Magnesi um oxide, Carvedilol, Nitroglycerin SL, Aspirin, supplemental oxygen Allergies: Lamictal, Codeine, Remeron, Sulfa Cardiac Risk Factors: Hyperlipidemia, COPD, FHX of CAD, Smoking (former) Previous Cardiac Procedures: None Pretest Chest Pain Characteristics: No chest pain Exercise History: Sedentary Physical Disabilities: None Lung Sounds: Clear to auscultation Heart Sounds: Regular Stress Test Details Test: Exercise stress converted to pharmacologic stress due to failure to obtain a diagnostic stress test. Nuclear Acquisition: Rest Tc-99m/Stress Tc-99m 1 day Rest Isotope: Tc-99m Sestamibi. Dose: 10.0 Date: 02/21/2022 Injection Time: 0915 Stress Isotope: Tc-99m Sestamibi. Dose: 31.0 Date: 02/21/2022 Injection Time: 1110 HR Resting HR Supine: 56 bpm Max Heart Rate (APMHR): 148.725180 bpm Resting HR Standin bpm Target HR (85% APMHR): 125.275440 bpm Max HR Achieved: 100 bpm % of APMHR: 67.57 Recovery HR: 83 bpm HR response to stress: Normal HR response to stress Comment: Carvedilol not held for test. BP Resting BP Supine: 132/78 mmHg Resting BP Standin/80 mmHg Max BP: 140/74 mmHg Recovery BP: 134/76 mmHg BP response to stress: Normal blood pressure response to stress. ECG Resting ECG: Sinus Bradycardia Ectopy: None Stress ECG: Sinus Rhythm ST Change: No significant ST segment changes noted Arrhythmia: PVCs, PACs Comment: significant artifact while patient walking. Recovery ECG: Sinus Rhythm Recovery ST Change: No significant ST segment changes noted Recovery Arrhythmia: PVCs, PACs, Clinical Reason for Termination: Dyspnea Stress Symptoms: Dyspnea Exercise duration: 1 min15 sec Highest Stage Reached: Stage 0: 1.7 mph at 0% grade. Rate Pressure Product: [id number] Stress ECG Conclusion 1. Resting electrocardiogram showed poor R wave progression 2. Patient underwent testing using a combination of low-level exercise and pharmacologic stress with regadenoson 3. Peak heart rate achieved was 67% of maximal for age 4. The electrocardiographic portion of the test was nondiagnostic due to inadequate heart rate 5. See MPI report Stress Test Summary STAGE Time (mins) Speed (mph) Grade (%) HR BP SpO2 SYMPTOMS METS Supine 56 132/78 Standing 66 128/80 99 1 min post Lexiscan injection 96 138/82 82 3 min post Lexiscan injection 85 140/74 85 6 min post Lexiscan injection 83 134/76 94 Patient attempted modified oh protocol. Was able to make it 1 min 15 sec before stopping d/t SOB. SpO2 dropped from high 90's to low 80's with 1 min of walking at 1.7 mph. Took a few minutes of rest for SpO2 to recover. Patient was wearing 2.5L NC throughout testing period. MPI Conclusion Myocardial perfusion is normal. There is no evidence of ischemia or prior infarction Ejection fraction is 78%. Wall motion is normal Radiologist Interpretation Radiologist agrees with Certified Nurse Operating Room's Interpretation. Radiologist Interpretation by: Gilberto Renee MD Interpretation Date/Time: 02/21/2022 17:45:12
[2022-02-21] MEDS: Regadenoson 0.4 MG/5 ML SYR IVP (11:19)
== END ==
PROVIDERS: PCP Family Medicine; Visit Provider Family Medicine
DX: R07.9 Chest pain, unspecified (principal)
CPT/HCPCS: 78452; 93016; 93018; 93017; J2785

== ENCOUNTER 2022-06-22 10:36 | Outpatient (CLI) | payer MEDICARE, SELFPAY | END 2022-06-22 10:37 | disposition home or self-care (01) | PROVIDERS: PCP Family Medicine; Visit Provider Family Medicine | DX: R00.0 Tachycardia, unspecified (principal) | CPT/HCPCS: 93246 ==

== ENCOUNTER 2022-07-11 01:48 | Outpatient (CLI) | payer MEDICARE, SELFPAY ==
--- NOTE | 2022-07-11 16:00 | DI.US_ITS ---
APPROVED REPORT EXAM: Comprehensive 2D, Doppler, and color-flow Echocardiogram Patient Location: Out-Patient [facility] Sales [employer] Management: Samy Garcia RDMS, RVT Indications: dyspnea on exertion, tachycardia Other Information Study Quality: Fair. Technically limited study due to body habitus. Conclusion Technically difficult but adequate study Normal left ventricular wall thickness and chamber size. Ejection fraction is 55%. No segmental wal l motion abnormalities are identified Normal right ventricular size and systolic function Both atria are normal in size There is no structural or hemodynamically significant valvular disease Estimated right ventricular systolic pressure is 43 mmHg Wall motion Left Ventricle The left ventricle is normal size. The left ventricular systolic function is normal. The left ventric ular ejection fraction is within the normal range. There is normal left ventricular wall thickness. T here are no segmental wall motion abnormalities There is no ventricular septal defect visualized. LVE F is 55%. Right Ventricle The right ventricle is normal size. The right ventricular systolic function is normal. The RVSP is 42 .5 mmHg. Atria The left atrium size is normal. The right atrium size is normal. The interatrial septum is intact wit h no evidence for an atrial septal defect. Aortic Valve The aortic valve is normal in structure. Aortic valve is trileaflet. There is no aortic valvular sten osis. Trace aortic regurgitation. Mitral Valve The mitral valve is normal in structure. No evidence of mitral valve stenosis. Trace mitral regurgit ation. Tricuspid Valve The tricuspid valve is normal in structure. There is no tricuspid valve stenosis. Mild tricuspid regu rgitation. Pulmonic Valve The pulmonary valve is normal in structure. There is no pulmonic valvular stenosis. Mild pulmonic reg urgitation. Great Vessels The aortic root is normal in size. The ascending aorta is normal in size. Aortic arch is normal in ca liber. IVC is normal in size and collapses >50% with inspiration. Pericardium There is no pericardial effusion. 2D Dimensions IVSD d PLAX 0.67 cm F: 0.6-1.0 LV Vol A2C d MOD 34.4 mL LVPW d PLAX 0.68 cm F: 0.6 - 1.0 LV Vol A4C d MOD 57.7 mL LVID d PLAX 4.33 cm F: 3.8 - 5.2 LA vol/ BSA A4C s A-L 15.6 mL/m2 LVDs 3.30 cm F: 2.2 - 3.5 LA Area A4C s MOD 13.17 cm2 Ao Root d 2.73 cm F: 2.7 - 3.3 LV EF A4C MOD 43.0 % Ao Asc Diam d 2.92 cm F: 2.3 - 3.1 LV EF A2C MOD 46.6 % LV EF Teichholz 47.5 % LV EF Biplane MOD 46.1 % LVEF (Christensen's) 46.07 % F: 54 - 74 SV 21.86 mL LV Volume 37.51 mL F: 46 - 106 SV Index 12.71 mL/m2 LV Volume Index 21.80 mL/m2 F: 29 - 61 LV Vol Biplane MOD 47.4 mL FS 23.65 % M-Mode TAPSE 1.93 cm (M/F) >1.7 LV Diastology MV E' medial 0.085 (>0.07 m/s) E/A Ratio 0.7 LV E/e MED 5.80 (<14) MV E Vmax 0.50 (0.4-1.3 m/s) MV E' lateral 0.092 (>0.1 m/s) MV A Vmax 0.70 (0.4-1.3 m/s) LV E/e LAT 5.35 (<14) MV E/A Ratio 0.68 MV E/E' medial 5.85 MV E/E' lateral 5.38 Aortic Valve LVOT Area 3.19 cm2 AoV Area Vmax 2.69 cm2 LVOT Vmax 0.93 m/s AoV Area/ BSA (Vmax) 1.56 cm2/m2 LVOT Mean Michael. 0.55 m/s ASHIA Mean Michael. 2.07 cm2 LVOT Peak Grad 3.5 mmHg ASHIA Mean Michael. Index 1.20 cm2/m2 LVOT Mean Grad 1.5 mmHg LVOT VTI 0.201 m LVOT Diam s 2.00 cm AoV Vmax 1.10 m/s Velocity Ratio 0.85 AoV Mean Michael. 0.85 m/s AoV Peak Grad 4.8 mmHg LVOT SV 64.10 mL AoV Mean Grad 3.1 mmHg AoV VTI 0.218 m AoV Area VTI 2.94 cm2 AoV Area/ BSA (VTI) 1.71 cm/m2 Mitral Valve MV DT 233 (160-240 msec) MV PHT 68 msec MV Area PHT 3.26 cm2 MV VTI 0.263 m MV Area VTI 2.43 (4.0-6.0 cm2) Pulmonary Valve PV Vmax 0.92 (0.5-1.5 m/s) RVOT Peak Gr. 1.51 mmHg PV Peak Grad 3.4 mmHg RVOT Mean Gr. 0.90 mmHg PV Mean Grad 2.1 mmHg RVOT VTI 0.146 m PV VTI 0.215 m RVOT Vmax 0.61 m/s Tricuspid Valve TR Peak Grad 39.5 mmHg TR Vmax 3.14 m/s RA Pressure 3.00 mmHg RVSP (TR) 42.5 mmHg
== END 2022-07-11 02:08 ==
LOC: DI 01:48
PROVIDERS: PCP Family Medicine; Visit Provider Family Medicine
DX: R06.09 Other forms of dyspnea (principal)
CPT/HCPCS: 93306

== ENCOUNTER 2022-07-18 07:25 | Outpatient (CLI) | payer MEDICARE, SELFPAY ==
--- NOTE | 2022-07-18 08:20 | W.CARDEVENT ---
Date of service: 07/18/22 Time of Service: 08:20 Cardiac Event Recorder Referring Provider:: Meme Rosa Indications:: Hypoxemia and tachycardia Cardiac Event Note: This is a 14-day cardiac event monitor Rhythm throughout is sinus with an average heart rate of 65. Minimum was 44, maximum 140 There were very rare ventricular ectopic beats. There was 1 ventricular triplet There were very rare atrial premature beats. A total of 6 self-limited atrial runs occurred. The longest of these was 10 beats in duration There was no atrial fibrillation, no high-grade AV block, no pauses greater than 3 seconds Patient symptoms were reported. These corresponded to sinus rhythm without any associated dysrhythmia
== END 2022-07-18 07:26 | disposition home or self-care (01) ==
LOC: CARDOPNVT 07:25
PROVIDERS: PCP Family Medicine; Visit Provider Internal Medicine Cardiovascular Disease
DX: R09.02 Hypoxemia (principal); R00.0 Tachycardia, unspecified; I49.1 Atrial premature depolarization
CPT/HCPCS: 93248

== ENCOUNTER 2022-09-04 04:36 | Outpatient (CLI) | payer MEDICARE, SELFPAY ==
[2022-09-04] MEDS: Albuterol HFA 18 GM 200 PUFF INH IH (11:37)
[2022-09-04] MEDS: Inhaler, Assist Device 1 EACH MC (11:38)
--- NOTE | 2022-09-04 14:02 | W.6MWT ---
Date of service: 09/04/22 Time of Service: 08:00 6 Minute Walk Test Note: 6 Minute Walk Test Distance walked:200 ft Desaturations:93% at rest to 78% at 3 minutes Heart rate changes: 71bpm to 94 bpm at 1 minute Recommendation: Recommend exertional supplemental O2. No titration completed - recommend start at 2LPM and complete an O2 titration 6 minute walk test. Tonia Garsia MD Pulmonary & Critical Care Medicine
--- NOTE | 2022-09-04 16:16 | W.PFT ---
Date of service: 09/04/22 Time of Service: 08:07 Pulmonary Function Test Result Indications: COPD Interpretation Spirometry: There is moderate airflow limitation. There is no significant bronchodilator response. Lung Volumes: There is significant hyperinflation and air trapping. Diffusion Capacity: Severely reduced diffusion. Airway Pressure: There is increased airways resistance. Impression Moderate airflow obstruction with a reduced diffusion and air trapping consistent with COPD with emphysema. Note: When compared to 10/16/12, there has been significant lung function decline, even when accounting for aging. Clinical Correlation therefore is recommended.
--- NOTE | 2022-09-05 15:29 | W.NOCTURNAL ---
Date of service: 09/04/22 Time of Service: 19:28 Nocturnal Oximetry Note: Overnight Oximetry Amount of time analyzed: 6 hours, 53 minutes on 2.5LPM supplemental O2 Number of minutes under 88%: 87.8 NUPUR:0.9 Appearance of oxygen saturation pattern: Gradual decreases in SpO2, conistent with cardiac or pulmonary disease. Recommendation: Can consider sleep study or increasing nocturnal supplemental O2 and re-testing. Tonia Garsia MD Pulmonary & Critical Care Medicine
== END 2022-09-04 04:37 | disposition home or self-care (01) ==
LOC: RT 04:36
PROVIDERS: PCP Family Medicine; Visit Provider Physician Assistant Surgical
DX: J96.11 Chronic respiratory failure with hypoxia (principal)
CPT/HCPCS: 94060; 94618; 94726; 94729; 94762

== ENCOUNTER 2022-10-05 10:51 | Outpatient (REF) | payer MEDICARE, SELFPAY ==
[2022-10-05 12:33] LABS: Abs Immature Grans 0.03 10^3/uL (0.0-0.06); Absolute Basophil Count 0.09 10^3/uL (0.0-0.2); Absolute Eosinophil Count 0.21 10^3/uL (0.0-0.7); Absolute Lymphocyte Count 1.72 10^3/uL (1.2-3.4); Absolute Monocyte Count 0.71 10^3/uL (0.1-0.8); Absolute Neutrophil Count 7.01 10^3/uL (1.2-6.7); Basophils % 0.9; Eosinophils % 2.1; HCT 36.2 % (36.0-46.0); HGB 12.1 g/dL (11.2-15.7); Immature Grans % 0.3; Lymphocytes % 17.6; MCH 30.8 pg (27.0-33.0); MCHC 33.4 % (32.0-36.0); MCV 92 fL (80-95); MPV 8.7 fL (8.0-11.0); Monocytes % 7.3; Neutrophils % 71.8; Platelet Count 431 10^3/uL (130-400); RBC 3.93 10^6/uL (3.93-5.22); RDW 13.7 % (11.7-14.6); RDW-SD 46.1 fL; WBC 9.77 10^3/uL (4.4-10.8)
[2022-10-05 13:14] LABS: ALT 18 U/L (14-59); AST 16 U/L (15-37); Alkaline Phosphatase 77 U/L (46-116); Anion Gap 7.9 mmol/L (3-11); BUN 13 mg/dL (7-18); Bilirubin, Total 0.2 mg/dL (0.2-1.0); CO2 29.1 mmol/L (21.0-32.0); CREATININE 0.8 mg/dL (0.55-1.02); Calcium 8.1 mg/dL (8.5-10.1); Chloride 107 mmol/L (98-107); Estimated GFR 77.75 (mL/min/1.73m2); Ferritin 17 ng/mL (8-252); Glucose 127 mg/dL (74-106); Potassium 4.4 mmol/L (3.5-5.1); Sodium 144 mmol/L (136-145); Total Protein 6.6 g/dL (6.4-8.2); Vitamin B12 723 pg/mL (193-986)
[2022-10-05 13:17] LABS: Iron 28 ug/dL (50-170); Total Iron Binding Capacity 295 ug/dL (250-450); Transferrin Sat 9 % (15-50)
[2022-10-05 13:18] LABS: Folate > 20.0 ng/mL (8.6-20.0)
== END 2022-10-05 10:52 | disposition home or self-care (01) ==
LOC: LBN 10:51
PROVIDERS: PCP Family Medicine; Referring Provider Family Medicine; Visit Provider Surgery
DX: D64.9 Anemia, unspecified; E78.5 Hyperlipidemia, unspecified; F03.911 Unspecified dementia, unspecified severity, with agitation; F43.10 Post-traumatic stress disorder, unspecified; I20.1 Angina pectoris with documented spasm; I27.20 Pulmonary hypertension, unspecified; J44.9 Chronic obstructive pulmonary disease, unspecified; J96.11 Chronic respiratory failure with hypoxia; K21.9 Gastro-esophageal reflux disease without esophagitis; K62.5 Hemorrhage of anus and rectum; R63.4 Abnormal weight loss; S22.060A Wedge compression fracture of T7-T8 vertebra, initial encounter for closed fracture; Z87.891 Personal history of nicotine dependence; X58.XXXA Exposure to other specified factors, initial encounter
CPT/HCPCS: 80053; 82607; 82728; 82746; 83540; 83550; 85025

== ENCOUNTER → 2022-10-05 10:51 | Outpatient (BNVA) | payer MEDICARE, SELFPAY | PROVIDERS: PCP Family Medicine; Referring Provider Family Medicine; Visit Provider Surgery | DX: K64.4 Residual hemorrhoidal skin tags (principal); D37.4 Neoplasm of uncertain behavior of colon | CPT/HCPCS: 36415; 99213; 99215 ==

== ENCOUNTER → 2023-01-25 01:19 | Outpatient (CLI) | payer MEDICARE, SELFPAY ==
--- NOTE | 2023-01-25 08:25 | DI.MAMMO_ITS ---
Exam(s) MAMMO SCREENING EXAM: MAMMO SCREENING CLINICAL HISTORY: SCREENING FOR BREAST CANCER Z12.31. TECHNIQUE: Bilateral full field digital CC and MLO mammographic images were obtained with 3D tomosyn thesis and utilizing computer aided detection (CAD). COMPARISON: Prior mammograms were reviewed. FINDINGS: There has been no significant change in the appearance and distribution of the fibroglandular tissue. There are no new spiculated masses nor malignant appearing microcalcification groups. There is no significant architectural distortion nor skin thickening-retraction. IMPRESSION: No radiographic evidence of malignancy. BI-RADS Category 1 - Negative Breast Density - Category B - Scattered areas of fibroglandular density Breast density Category C or D implies that the patient has dense breast tissue. Dense breast tissue can make it harder to find cancer on a mammogram. Dense breast tissue is also associated with an incr eased risk of breast cancer. This information about the result of the mammogram report was provided to the patient to raise their awareness. Use this report when you speak with the patient about their risks for breast cancer, which includes their family history. At that time, you may recommend additional screening tests (Ultrasoun d or MRI) as these tests may add significant information. A negative radiographic report should not delay biopsy if a dominant or clinically suspicious mass is present. Up to ten percent of cancers are not identified on mammography. A negative report may reinforce clinical impression. Adenosis and dense breasts may obscure an underlying neoplasm. False positive reports average 6 to 10%. Patient will receive a letter notifying them of these results.
== END ==
PROVIDERS: PCP Family Medicine; Visit Provider Family Medicine
DX: Z12.31 Encounter for screening mammogram for malignant neoplasm of breast (principal); R92.323 Mammographic fibroglandular density, bilateral breasts
CPT/HCPCS: 77063; 77067

== ENCOUNTER → 2023-01-29 09:30 | Outpatient (BNVA) | payer MEDICARE, SELFPAY | PROVIDERS: PCP Family Medicine; Referring Provider Family Medicine; Visit Provider Physician Assistant Surgical | DX: J44.9 Chronic obstructive pulmonary disease, unspecified (principal); Z79.51 Long term (current) use of inhaled steroids; I27.20 Pulmonary hypertension, unspecified; J96.11 Chronic respiratory failure with hypoxia; Z87.891 Personal history of nicotine dependence; F03.90 Unspecified dementia, unspecified severity, without behavioral disturbance, psychotic disturbance, mood disturbance, and anxiety; F22 Delusional disorders | CPT/HCPCS: 99214 ==